=== PATIENT | female | born 2000 | race Caucasian/White ===

== ENCOUNTER 2019-12-27 08:51 | Emergency (ER) | payer OTHER, SELFPAY ==
[2019-12-27 08:53] VITALS: BP 152/88; PULSE 137; RESP 18; TEMP 36.1; O2SAT 98; BMI 34.4
--- NOTE | 2019-12-27 09:24 | ED.DCSUM_ITS ---
History of Present Illness Chief Complaint: Abd Pain Informant: Patient, Family Narrative: Patient states for the past 4 days she has had a worsening swelling of the left labia. 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 She is not had this before. Notes it is very painful and painful to move. Past Medical History - Allergies and Home Meds Allergies/Adverse Reactions: Allergies No Known Allergies Allergy (Verified 12/27/19 08:55) Primary Care Physician: Samara Lazaro PA-C [Primary Care Provider] - Smoking Status: Never smoker Review of Systems General: Denies: Chills, Fever, Sweats Eyes: Denies: Visual changes - bilaterally, Diplopia ENT: Denies: Rhinorrhea, Sore throat Cardiovascular: Denies: Chest pain, Palpitations Respiratory: Denies: Dyspnea, Cough, Dyspnea on exertion Gastrointestinal: Denies: Abdominal pain, Nausea, Vomiting, Diarrhea, Melena, Hematochezia Genitourinary: Reports: - - See history of present illness. Denies: Dysuria, Hematuria, Frequency Musculoskeletal: Denies: Back pain, Extremity Pain Skin: Denies: Rash, Wounds Neurological: Denies: Headache, Weakness, Numbness Physical Exam Vital Signs/Narrative: Vital Signs Temp Pulse Resp BP Pulse Ox 12/27/19 08:53 97 F L 137 H 18 152/88 H 98 Inital Vital Signs reviewed: Yes General: Well nourished, Well developed, No Acute Distress Head: Normocephalic, Atraumatic Eyes: Perrl, EOMI ENT: Moist mucous membranes, No rhinorrhea Neck: Supple, Nontender Cardiovascular: Regular rate, Regular rhythm, No murmurs Respiratory: No distress, CTA bilaterally, Chest nontender Abdomen: Soft, Nontender, Nondistended, Normal bowel sounds : - - There is significant swelling and erythema of the right labia and a focal swelling fluctuance consistent with a Bartholin's abscess Back: Nontender, Normal Inspection Extremities: Nontender, No edema Skin: Normal color, No rash Neurological: Alert, Oriented x3, Cranial nerves II-XII grossly intact, Normal Strength, Normal Sensation Psychological: Normal affect, Normal Mood Diagnostic/Tx/Re-eval - Medical Decision Making Let was applied to the area of fluctuance. 1% lidocaine instilled into the area after adequate time for let to work. A 11 blade was used to make an incision with expression of a large amount of pus. The area was probed for loculations and irrigated with sterile saline. Quarter inch iodoform gauze of about 5 inches was placed. Because of the surrounding erythema and concern for cellulitis the patient will be placed on antibiotics and pain medication. She needs to follow-up with gynecology in 3 days. ED Disposition - Plan for ED Patient: Disposition: Home or Assisted Living Diagnosis: Bartholin's gland abscess, Cellulitis of labia majora Instructions: ED Bartholins Cyst IandD Prescriptions: Smz/Tmp Ds [Bactrim Ds] 1 tab PO BID #20 tab Prescription Printed Cephalexin [Keflex] 500 mg PO Q6 #40 cap Prescription Printed Hydrocodone Bitart/Apap 5-325 [[place] 5MG-325MG] 1 tab PO Q6H PRN PRN 3 Days #12 tab PRN Reason: Pain Prescription Printed Referrals: Kelsey Duran DO [STAFF PHYSICIAN] -
[2019-12-27] MEDS: HYDROcodone Bitartrate/Apap 5/325 Tablet PO (10:02)
[2019-12-27] MEDS: Lidocaine/Epi/Tetracaine 50 ML 1 APPLIC TOPICAL (10:03)
[2019-12-27 11:41] VITALS: BP 137/88; PULSE 92; RESP 18; O2SAT 97
== END 2019-12-27 11:42 | disposition home or self-care (01) ==
PROVIDERS: Emergency Provider Emergency Medicine; PCP Family Medicine
DX: R10.9 Unspecified abdominal pain (principal); N75.1 Abscess of Bartholin's gland; N76.2 Acute vulvitis
CPT/HCPCS: 10060; 99283

== ENCOUNTER 2021-05-11 23:59 | Emergency (ER) | payer OTHER, SELFPAY ==
[2021-05-12] VITALS: BP 181/106; PULSE 108; RESP 16; TEMP 36.6; O2SAT 99; BMI 34.9
--- NOTE | 2021-05-12 00:12 | ED.VIS.FEGU ---
HPI HPI - Female History of Present Illness Chief Complaint: Vag Bleeding Narrative Narrative: Patient presents with vaginal bleeding that is irregular. She states that she has had irregular vaginal bleeding for the past few months, since December. She states that she will have heavy and light days. She may stop for 1 or 2 days, then will begin bleeding again. Most recently, she stopped bleeding on Friday and Friday, then began bleeding on Friday, 5 days ago. She states that this is different because she is passing a large amount of clots/large clots and bright red blood. She denies any other bleeding diathesis. No chest pain or shortness of breath, no lightheadedness, but her states that she becomes fatigued very frequently. PFSH PFSH Medical History no medical history Home Medications NK 05/12/21 [History Last Taken Unknown] Allergy/AdvReac Type Severity Reaction Status Date / Time No Known Allergies Allergy Verified 05/12/21 00:01 Social History Smoking Status: Never smoker ROS ROS ED ROS Narrative Constitutional: No fever, no chills. Mild fatigue. HEENT: No sore throat. No neck pain. No loss of vision. No rhinorrhea. Cardiovascular: No chest pain. No palpitations. No pedal edema. Respiratory: No cough, no shortness of breath. Abdominal: No abdominal pain. No nausea. No vomiting. Genitourinary: No dysuria. No hematuria. Positive irregular vaginal bleeding, passing large clots and bright red blood. Musculoskeletal: No myalgias. No arthralgias. Neurologic: No headaches. No dizziness. No lightheadedness. Skin: No rash. No change in color. Psychiatric: No depression. No anxiety. EXAM Physical Exam Narrative Exam Narrative: Afebrile. Vital signs noted. HEENT: Normocephalic. Atraumatic. PERRL, EOMI. Neck soft and supple. No point tenderness or step off. Cardiovascular: Regular rate and rhythm. No murmurs, rubs, or gallops appreciated. Respiratory: No tachypnea. Lungs clear to auscultation bilaterally. Gastrointestinal: Abdomen soft, nontender, with normoactive bowel sounds. No rebound or guarding. Neurological: Awake. Alert. Nonfocal, nonlateralizing. Skin: No rash. Normal color. No pallor. Musculoskeletal: No pedal edema. Full range of motion extremities. Const Vital Signs: 05/12/21 00:00 Temperature 97.8 F Temperature Source Temporal Pulse Rate 108 H Respiratory Rate 16 Blood Pressure 181/106 H Blood Pressure Mean 131 Pulse Ox 99 MDM MDM MDM Narrative Medical decision making narrative: I shall obtain a CBC and a serum test. Pelvic examination will be performed. She has slightly elevated white count of 11.5 which I think is nonspecific. Hemoglobin normal at 13.3. Serum is negative. Molecular Genetic Pathologist pelvic examination did show a mild amount of old blood in the vaginal vault, but no active hemorrhaging or laceration noted. Blood did appear to be coming from the os. At this point in time, given her dysfunctional uterine bleeding, I do feel that she can be discharged safely home to follow-up with the [facility]. She will take [id number]-[id number] Motrin as needed. She was told that medication such as control pills or Provera should come from the [facility]. Return instructions to the emergency department were reviewed. Disposition is discharged home in stable condition. Lab Data Attestation: I reviewed the patient's lab results. Labs: Laboratory Results - last 24 hr 05/12/21 05/12/21 00:20 00:20 WBC 11.5 H RBC 4.46 Hgb 13.3 Hct 40.0 MCV 89.7 MCH 29.8 MCHC 33.3 RDW Std Deviation 41.4 RDW Coeff of [place] 12.5 Plt Count 230 MPV 9.3 Immature Gran % (Auto) 0.400 Neut % (Auto) 69.2 Lymph % (Auto) 22.1 [place] % (Auto) 7.0 Eos % (Auto) 1.0 Baso % (Auto) 0.3 Absolute Neuts (auto) 7.9 H Absolute Lymphs (auto) 2.53 Nucleated RBC % 0 Serum , Qual NEGATIVE Discharge Plan Triage Chief Complaint: Vag Bleeding ED Provider: Nasim Shea Dx/Rx/DC Orders Clinical Impression: Dysfunctional uterine bleeding Instructions: ED Dysfunctional Uterine Bleeding Prescriptions: No Action NK RF: 0 Primary Care Provider: Samara Lazaro Referrals: Elsy Sanabria MD [STAFF PHYSICIAN] - 05/14/21 Samara Lazaro PA-C [Primary Care Provider] - Disposition Disposition: Home, Self Care
[2021-05-12 00:29] LABS: Absolute Lymphocyte Count 2.53 X10^3/uL (0.83-4.51); Absolute Neutrophil Count 7.9 X10^3/uL (2.0-7.7); Basophil# 0.04 X10^3/uL; Basophil% 0.3 % (0-1); Eosinophil# 0.11 X10^3/uL; Hemoglobin 13.3 g/dL (12.0-15.0); Lymphocyte # 2.53 X10^3/ul (0.83-4.51); Lymphocyte % 22.1 % (19-41); Mean Corp Hgb Conc 33.3 g/dL (32-36); Mean Corpuscular Hgb 29.8 pg (27.0-32.0); Mean Corpuscular Volume 89.7 fL (81-99); Mean Platelet Vol. 9.3 fl (6.2-12.0); NRBC Flagged by Analyzer 0 % (0-5); Neutrophil # 7.92 X10^3/uL (2.7-7.7); Neutrophil % 69.2 % (47-70); Platelet Count 230 K/mm3 (150-450); RBC Distribution Width CV 12.5 % (11.6-14.6); RBC Distribution Width SD 41.4 fl (35.1-43.9); Red Blood Count 4.46 M/mm3 (4.2-5.4); White Blood Count 11.5 K/mm3 (4.4-11.0)
[2021-05-12 00:37] LABS: Internal QC Validated? YES +Cl - CLEAR BKGD; Pregnancy, Serum, hCG Quali. NEGATIVE Negative
== END 2021-05-12 01:30 | disposition home or self-care (01) ==
PROVIDERS: Emergency Provider Emergency Medicine; PCP Family Medicine
DX: N93.8 Other specified abnormal uterine and vaginal bleeding (principal)
CPT/HCPCS: 84703; 85025; 99283

== ENCOUNTER 2021-05-30 13:51 | Outpatient (CLI) | payer OTHER, SELFPAY ==
[2021-05-30 14:45] LABS: Prolactin 8.1 ng/mL; Thyroid Stim Hormone (TSH) 1.05 uIU/mL (0.358-3.74)
[2021-06-02 00:06] LABS: Chlamydia By Nucleic Acid AMP Negative (Negative)
[2021-06-02 08:09] LABS: DHEA Sulfate 44.4 ug/dL (110.0-431.7)
[2021-06-02 16:14] LABS: Gonococcus By Nucleic Acid AMP Negative (Negative)
[2021-06-04 14:32] LABS: HPV Reflexed? NOT INDICATED
== END 2021-05-30 23:59 | disposition short-term general hospital (02) ==
PROVIDERS: PCP Family Medicine; Referring Provider Nurse Practitioner Women's Health; Visit Provider Nurse Practitioner Women's Health
DX: N93.9 Abnormal uterine and vaginal bleeding, unspecified (principal); Z12.4 Encounter for screening for malignant neoplasm of cervix
CPT/HCPCS: 36415; 82627; 84146; 84402; 84443; 87491; 87591; 88175; 82626; G0145

== ENCOUNTER → 2022-01-31 | Outpatient (CLI) | payer SELFPAY, OTHER ==
--- NOTE | 2022-01-31 14:30 | US_ITS ---
STUDY: ULTRASOUND OF THE FEMALE PELVIS - COMPLETE REASON FOR EXAM: Female, 21 years old. infertility and amenorrhea TECHNIQUE: Endovaginal. Transvaginal US was obtained to better visualized the ovaries. COMPARISON: None. FINDINGS: The uterus is anteverted and is in a midline position. The uterus measures 7.1 x 3.7 cm. There is a Nabothian cyst of the cervix. The endometrium measures 1 mm in thickness, and is hyperechoic. There is no demonstrated endometrial mass. There is no demonstrated myometrial mass. I.U.D. - The patient does not have an I.U.D. The right ovary is visualized. The right ovary measures 3.4 x 2.9 cm. There is no right ovarian cyst or ovarian mass. There is no visualized right adnexal mass or complex lesion. There is normal arterial and normal venous vascularity. The left ovary is visualized. The left ovary measures 4.8 x 3.7 cm. There is no left ovarian cyst or ovarian mass. There is no visualized left adnexal mass or complex lesion. There is normal arterial and normal venous vascularity. There is no fluid in the cul-de-sac. Urinary bladder volume is (in cc) 95. US/Transvaginal Non- IMPRESSION: There are Nabothian cysts of the cervix. Moderate free fluid in the pelvis contains debris. Electronically Signed: Rolando Leija MD at 15:59 EDT ,
--- NOTE | 2022-01-31 14:30 | US_ITS ---
STUDY: ULTRASOUND OF THE FEMALE PELVIS - COMPLETE REASON FOR EXAM: Female, 21 years old. infertility and amenorrhea TECHNIQUE: Endovaginal. Transvaginal US was obtained to better visualized the ovaries. COMPARISON: None. FINDINGS: The uterus is anteverted and is in a midline position. The uterus measures 7.1 x 3.7 cm. There is a Nabothian cyst of the cervix. The endometrium measures 1 mm in thickness, and is hyperechoic. There is no demonstrated endometrial mass. There is no demonstrated myometrial mass. I.U.D. - The patient does not have an I.U.D. The right ovary is visualized. The right ovary measures 3.4 x 2.9 cm. There is no right ovarian cyst or ovarian mass. There is no visualized right adnexal mass or complex lesion. There is normal arterial and normal venous vascularity. The left ovary is visualized. The left ovary measures 4.8 x 3.7 cm. There is no left ovarian cyst or ovarian mass. There is no visualized left adnexal mass or complex lesion. There is normal arterial and normal venous vascularity. There is no fluid in the cul-de-sac. Urinary bladder volume is (in cc) 95. US/Pelvic (Non ) IMPRESSION: There are Nabothian cysts of the cervix. Moderate free fluid in the pelvis contains debris. Electronically Signed: Rolando Leija MD at 15:59 EDT ,
== END | disposition home or self-care (01) ==
LOC: US 14:29
PROVIDERS: PCP Family Medicine; Referring Provider Obstetrics & Gynecology; Visit Provider Obstetrics & Gynecology
DX: N93.9 Abnormal uterine and vaginal bleeding, unspecified (principal)
CPT/HCPCS: 76830; 76856

== ENCOUNTER → 2022-02-20 | Outpatient (CLI) | payer OTHER, SELFPAY ==
--- NOTE | 2022-02-20 11:53 | RAD_ITS ---
STUDY: HYSTEROSALPINGOGRAM. REASON FOR EXAM: Female, 21 years old. Fertility testing FLUOROSCOPY TIME (if supplied): ( 62 seconds ) minutes/seconds. 2 images were obtained. TECHNIQUE: A hysterosalpingogram was performed by the fish dressing machine feeder. Imaging was provided. COMPARISON: None. FINDINGS: The uterus is visualized and is unremarkable. The fallopian tubes are not opacified. RAD/Salpingogram IMPRESSION: The fallopian tubes are not opacified. Electronically Signed: Oscar Ray MD at 13:10 EDT ,
--- NOTE | 2022-02-20 13:08 | PCM.OP.BLANK ---
Operative Report Preop diagnosis: Infertility Postop diagnosis: Infertility, bilateral tubes blocked. Procedure: Hysterosalpingogram Surgeon: Amanda Morrison Do Implantable devices: None Complications: None Findings: Bilateral tubal patency and normal uterine cavity Operative details: Patient was taken to the x-ray room and was placed on the x-ray table and was in the dorsal lithotomy position. Speculum was placed in the vagina and the cervix prepped with Betadine and the HSG catheter was easily introduced into the uterus and speculum removed. Radiologist was brought in and while pushing radiopaque dye into the uterus via the HSG catheter the radiologist took multiple images and views and confirmed that there is bilateral blockage of both fallopian tubes. No gross uterine filling defects or abnormalities were seen. All instruments removed from the vagina and the uterus without complication. Patient tolerated the procedure well. Multi Select Codes Urinary/Genital Urinary/Genital CPT Codes: 54598 HSG/SIS
== END | disposition home or self-care (01) ==
PROVIDERS: PCP Family Medicine; Referring Provider Obstetrics & Gynecology; Visit Provider Obstetrics & Gynecology
DX: E28.2 Polycystic ovarian syndrome (principal); Z31.41 Encounter for fertility testing
CPT/HCPCS: 58340; 74740; Q9967

== ENCOUNTER 2022-02-26 08:00 | Day surgery (SDC) | payer SELFPAY, OTHER ==
[2022-02-25 14:36] LABS: Hematocrit 43.2 % (37-47); Mean Corp Hgb Conc 32.4 g/dL (32-36); Mean Corpuscular Hgb 28.5 pg (27.0-32.0); Mean Corpuscular Volume 87.8 fL (81-99); Mean Platelet Vol. 9.8 fl (6.2-12.0); Platelet Count 270 K/mm3 (150-450); RBC Distribution Width SD 45.2 fl (35.1-43.9); Red Blood Count 4.92 M/mm3 (4.2-5.4); White Blood Count 11.7 K/mm3 (4.4-11.0)
[2022-02-26] VITALS (8 sets, daily range): BP systolic 106–150; BP diastolic 68–84; PULSE 67–125; RESP 16–18; TEMP 36.2–37; O2SAT 95–99; BMI 36.1
[2022-02-26] MEDS: Lactated Ringers 1,000 ML 15 ML IV (08:25)
--- NOTE | 2022-02-26 08:42 | HP.PCM_ITS ---
History and Physical Date of Admission: 02/26/22 MR#: [id number] Acct: [id number] Name:STARLA BUSTILLO Rep #: [id number] : 2000 ? ? Provider: Dr. Amanda Morrison, DO Age/Sex:? 21/F ? ? Location: [facility] Status: Signed Intake Vital Signs ? 01/24/2209:45 01/24/2209:46 Height 5 ft 9 in 5 ft 9 in Weight: 242 lb 2 oz ? BMI 35.7 ? BP 136/90 H ? Intake Visit Reasons:?discuss labs and clomid, see phone notes Paving Stone Installer Required: No Is patient in pain?: No Allergies No Known Allergies Allergy (Verified 01/24/22 09:45) Medications medroxyprogesterone 10 mg tablet 10 mg PO DAILY 10 days #30 tabs 07/11/21 [Rx Confirmed 01/24/22] progesterone micronized 100 mg capsule 100 mg PO QAM 10 days #10 caps 01/24/22 [Rx Confirmed 01/24/22] Post menopausal: No Patient : No : No PFSH Medical History? Bartholin cyst Family History? Father HypertensionGrandmother Hypertension Social History? Smoking Status:? Never smoker alcohol intake:? never substance use type:? does not use additional social history:? HPI discuss labs and clomid, see phone notes Details: STARLA LAM is a 21 year old who presents for discussion about infertility. She has been taking progesterone starting day 16 of cycle x 10 days to give her self a menses. She also has chin and neck hairs. HSG showed bilateral blockage of fallopian tubes. Dysmenorrhea: no Irregular menses: yes Menopausal symptoms: no Persistent HERRON or visual changes: no Hirsutism: yes Previous contraception used: none Duration of regular unprotected intercourse: yes for many years history of pelvic infections in patient or partner: no family history of endometriosis: pt unsure tobacco use for patient or her partner: no partner fathered any pregnancies: no partner history of testicular issues, ejaculatory dysfunction, or history of Mumps: no Partner medications/vitamins/supplements: no Partner's employment: self any additional risk factors identified: likely has PCOS. History ? ? ? 0 ? Elective abortions ? Hx Para ? Spontaneous abortions ? Hx # Term Pregnancies ? Ectopic pregnancies ? Hx # Pregnancies ? Multiple births ? # of living children ? ROS Const ROS Unobtainable: All systems reviewed & are unremarkable except as noted in H Resp Resp: Reports system reviewed and no additional complaints, except as documented; Denies cough GI GI: Reports as per HPI Psych Psych: Reports system reviewed and no additional complaints, except as documented Exam Const General: cooperative, healthy appearing, comfortable and no acute distress Resp Effort & Inspection: normal respiratory effort Skin General: no rashes or lesions noted Psych Appearance: grossly normal Speech and Movement: speech and movement normal Coding Level of Care Code Off vis,est,level 4 Diagnoses Abnormal uterine bleeding (AUB)? N93.9 Amenorrhea? N91.2 PCOS (polycystic ovarian syndrome)? E28.2 Assessment and Plan Assessment and Plan (1) Abnormal uterine bleeding (AUB): ?Status:?Acute ?Comment: provera cycling (2) Amenorrhea: ?Status:?Acute (3) PCOS (polycystic ovarian syndrome): ?Status:?Acute ? ? ? Orders: (4) bilateral non-patent fallopian tubes on HSG- pt was on the table waiting for radiologist with catheter in the uterus for 15 minutes. We discussed that there is the potential that this could have caused spasms of the fallopian tube creating a false result. The plan is to proceed with a diagnostic laparoscopy and chromopertubation using methylene blue to know more about what is going on.
[2022-02-26 08:57] LABS: Internal QC Validated? YES +Cl - CLEAR BKGD; Pregnancy, Urine Negative Negative
[2022-02-26] MEDS: Cefotetan 2 GM in 0.9% NS 100 ML IV (10:05)
--- NOTE | 2022-02-26 10:31 | DCINST_ITS ---
Discharge Instructions Diet Discharge Diet: No restrictions Activity Discharge Activity: Return to Normal Activity, May Not Drive (for two weeks or while taking narcotic pain medications.), May Shower and May Take a Tub Bath (in 7 days) May resume sexual activity in: 1 week Weight Bearing Status: Full weight bearing Dressing / Incision Call your doctor if you observe: Using more than 1 pad per hour, Shortness of breath, Chest pain and Uncontrolled pain Suture Line Care: Avoid Pulling/Pushing and Avoid Pinching/Bending Remove Dressing in: 1 week (if present) Cleanse incision/area with: Soap & Water and Keep Dressing Clean & Dry Follow Up Care Please Follow Up With: Amanda Morrison DO When: Call to make an appointment with your doctor for a follow up incision check in 1-2 weeks. Test Results: Test results from this visit will be discussed in further detail at your follow- up appointment, if applicable. Discharge Plan Admission Primary Reason for Your Visit: diagnostic laparoscopy Attending Provider: Amanda Morrison Primary Care Provider: Samara Lazaro Discharge Orders/Prescriptions Prescriptions: New oxycodone-acetaminophen [Percocet] 5-325 mg tablet 1 tab PO Q6H PRN (Reason: pain) 3 Days Qty: 10 0RF ibuprofen 600 mg tablet 600 mg PO Q6H PRN (Reason: pain) 7 Days Qty: 30 0RF Continued medroxyprogesterone [Provera] 10 mg tablet 10 mg PO DAILY Rx Instructions: Take 1 po cycle days 16-25 each month Referrals / Follow Up: Samara Lazaro PA-C [Primary Care Provider] - Disposition Disposition (needs filled in before D/C Order can be placed): Home, Self Care
--- NOTE | 2022-02-26 10:36 | OP.PCM_ITS ---
Problems Associated Problem List Diagnoses (1) Amenorrhea: (2) PCOS (polycystic ovarian syndrome): (3) History of hysterosalpingogram: Operative Report Date of Procedure: 02/26/22 Preoperative diagnosis: Abnormal hysterosalpingogram showing blockage of both fallopian tubes Postoperative diagnosis: Patent bilateral fallopian tubes Surgery: Diagnostic laparoscopy chromopertubation of fallopian tubes using methylene blue Surgeon: Amanda Morrison DO Supply Clerk: highway traffic control technician Anesthesia: General endotracheal intubation Estimated blood loss: 5 cc Urine output: 100 cc Findings: Normal uterus fallopian tubes and enlarged ovaries consistent with polycystic ovarian syndrome, patent fallopian tubes showing methylene blue spillage of both sides. Normal liver and bowel and omentum. Details of the procedure : the patient was brought to the operating room. General anesthesia was found to be adequate. She was prepped and draped in the usual sterile fashion her legs were placed in stirrups. A weighted speculum was placed in the vagina and the anterior lip of the cervix was grasped with a single-tooth tenaculum. The uterus sounded to 9 cm. A ZUMI uterine manipulator was inserted into the uterus. Gloves were changed and attention was turned towards the abdomen. An infraumbilical skin incision was made with a scalpel after quarter percent Marcaine injection. A 5 mm trocar was inserted into the abdomen under direct visualization using the laparoscope. Intraoperative images were noted and CO2 gas was used to inflate the abdomen. The patient was placed in Trendelenburg position and a left lower quadrant 5 mm trocar was inserted under direct visualization. The uterus was noted to be normal the bilateral fallopian tubes were normal without signs of adhesion edema mass or endometriosis. The ovaries were noted to be enlarged and consistent with her prior diagnosis of polycystic ovarian syndrome. Methylene blue was injected into the ZUMI manipulator and flow was seen coming from both fallopian tubes easily and without manipulation. At this time the procedure was ended all instruments were removed from the abdomen the incision sites were closed with a 4-0 Monocryl subcuticular stitch and sealed with surgical glue. The uterine manipulator was removed and excellent hemostasis was noted at the cervix. The patient tolerated the procedure well sponge lap and needle counts were correct x2 and she is now being brought to the recovery room in stable condition. Multi Select Codes Urinary/Genital Urinary/Genital CPT Codes: Other Procedure See Report (diagnostic laparoscopy, chromopertubation of fallopian tubes )
== END 2022-02-26 12:48 | disposition home or self-care (01) ==
LOC: SDC 08:00 → AC 08:01
PROVIDERS: PCP Family Medicine; Referring Provider Obstetrics & Gynecology; Visit Provider Obstetrics & Gynecology
PROC: (CPT 49320; principal; 2022-02-26 09:15)
DX: N93.9 Abnormal uterine and vaginal bleeding, unspecified (principal); E28.2 Polycystic ovarian syndrome; N83.8 Other noninflammatory disorders of ovary, fallopian tube and broad ligament; Z31.41 Encounter for fertility testing
CPT/HCPCS: 58350; 49320; 00952; 36415; 81025; 85027; J7120; Q9968

== ENCOUNTER → 2023-08-06 | Outpatient (CLI) | payer OTHER, SELFPAY ==
[2023-08-06 13:58] LABS: Progesterone Level 9.44 ng/mL (See Comment)
== END | disposition home or self-care (01) ==
LOC: LAB 12:23
PROVIDERS: PCP Family Medicine; Referring Provider Nurse Practitioner Women's Health; Visit Provider Nurse Practitioner Women's Health
DX: N97.0 Female infertility associated with anovulation (principal)
CPT/HCPCS: 36415; 84144

== ENCOUNTER → 2023-10-22 | Outpatient (CLI) | payer OTHER, SELFPAY ==
[2023-10-22 14:08] LABS: hCG Titer Quant., Serum 798 mIU/mL (1-3)
== END | disposition home or self-care (01) ==
LOC: LAB 11:21
PROVIDERS: PCP Family Medicine; Referring Provider Obstetrics & Gynecology; Visit Provider Obstetrics & Gynecology
DX: N91.2 Amenorrhea, unspecified (principal)
CPT/HCPCS: 36415; 84702

== ENCOUNTER → 2023-10-24 | Outpatient (CLI) | payer OTHER, SELFPAY ==
[2023-10-24 10:24] LABS: hCG Titer Quant., Serum 1485 mIU/mL (1-3)
== END | disposition home or self-care (01) ==
PROVIDERS: PCP Family Medicine; Referring Provider Obstetrics & Gynecology; Visit Provider Obstetrics & Gynecology
DX: N91.2 Amenorrhea, unspecified (principal)
CPT/HCPCS: 36415; 84702

== ENCOUNTER → 2023-11-14 | Outpatient (CLI) | payer OTHER, SELFPAY ==
[2023-11-14 12:50] LABS: Absolute Lymphocyte Count 2.06 X10^3/uL (0.83-4.51); Absolute Neutrophil Count 7.8 X10^3/uL (2.0-7.7); Basophil# 0.04 X10^3/uL; Basophil% 0.4 % (0-1); Eosinophil# 0.22 X10^3/uL; Hematocrit 41.7 % (37-47); Hemoglobin 13.5 g/dL (12.0-15.0); Lymphocyte # 2.06 X10^3/ul (0.83-4.51); Lymphocyte % 18.9 % (19-41); Mean Corp Hgb Conc 32.4 g/dL (32-36); Mean Corpuscular Hgb 28.6 pg (27.0-32.0); Mean Corpuscular Volume 88.3 fL (81-99); Mean Platelet Vol. 9.6 fl (6.2-12.0); Monocyte# 0.71 X10^3/uL; Monocyte% 6.5 % (0-10); NRBC Flagged by Analyzer 0 % (0-5); Neutrophil # 7.79 X10^3/uL (2.7-7.7); Neutrophil % 71.6 % (47-70); Platelet Count 267 K/mm3 (150-450); RBC Distribution Width CV 13.8 % (11.6-14.6); RBC Distribution Width SD 44.9 fl (35.1-43.9); Red Blood Count 4.72 M/mm3 (4.2-5.4); White Blood Count 10.9 K/mm3 (4.4-11.0)
[2023-11-14 13:35] LABS: hCG Titer Quant., Serum 9887 mIU/mL (1-3)
== END | disposition home or self-care (01) ==
PROVIDERS: PCP Family Medicine; Referring Provider Registered Nurse; Visit Provider Registered Nurse
DX: O20.0 Threatened abortion (principal); O99.210 Obesity complicating pregnancy, unspecified trimester; Z3A.00 Weeks of gestation of pregnancy not specified
CPT/HCPCS: 36415; 83036; 84702; 85025; 86850; 86900; 86901

== ENCOUNTER 2023-11-16 13:13 | Emergency (ER) | payer OTHER, SELFPAY ==
[2023-11-16 13:14] VITALS: BP 150/97; PULSE 103; RESP 12; RESP 14; TEMP 36.3; O2SAT 97; BMI 32.8
--- NOTE | 2023-11-16 13:34 | ED.VIS.FEGU ---
HPI <FAM Wooten - Last Filed: 11/16/23 15:11> HPI - Female History of Present Illness Chief Complaint: Narrative Narrative: Patient is a 23-year-old female with no significant medical history, patient presents to the emergency department for a repeat lab value. Patient sees [place] [facility], patient last menstrual cycle was September 18, 2023. Patient had an ultrasound and hCG quantitative completed 2 days ago, the belief was that the patient was 8 weeks however she is only measuring up to 5 weeks with a would like a repeat hCG quantitative here today. Patient states she has no belly pain, no difficulty urinating, no vaginal bleeding. Patient is mostly asymptomatic and states she is just here for the blood draw [facility] <FAM Wooten - Last Filed: 11/16/23 15:11> [facility] Medical History (Updated 11/16/23 @ 15:11 by FAM Wooten) Wears glasses Heartburn Non-smoker Bartholin cyst Home Medications ?Medication ?Instructions ?Recorded ?Last Taken ?Type vits no.126-ferrous fum tab PO 11/07/23 Unknown History 28 mg iron-folic acid 800 mcg tablet (Classic ) Allergy/AdvReac Type Severity Reaction Status Date / Time No Known Allergies Allergy Verified 11/16/23 13:14 Family History Father Hypertension Grandmother Hypertension Surgical History (Updated 11/14/23 @ 11:21 by Roxana Orta) Status post laparoscopy (~02/26/22) Hx of tooth extraction Social History adopted: No household members: spouse current occupational status: employed 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 occupational exposures/hazards: No pets and animals: Yes (outside) pets and animals: dog(s) history of recent travel: No sexually active: Yes Smoking Status: Never smoker alcohol intake: current alcohol intake frequency: holidays/special occasions only details: not while substance use type: does not use diet: gluten free and lactose free well-balanced diet: daily or most days caffeine: No eating out: rarely or never during the past year weight has: remained stable what type of physical activity do you participate in: walking frequency: 5-6 times per week duration: 15-30 minutes/day preethi/yarsanism: Scientology seatbelt use: sometimes do you feel safe at home: Yes additional social history: - Eri: [employer] ROS <FAM Wooten - Last Filed: 11/16/23 15:11> ROS ED ROS Narrative Constitutional: Negative for fever, chills, weight loss, weakness Eyes: Negative for vision loss, vision change, double vision ENT: Negative for any sore throat, ear pain, congestion Cardiovascular: Negative for any chest pain, tightness, palpitations Respiratory: Negative for any cough, sputum production, hemoptysis, dyspnea, dyspnea on exertion, orthopnea Gastrointestinal: Negative for any abdominal pain, nausea, vomiting, diarrhea, constipation, blood in stool, blood in vomit : Negative for any urinary frequency, dysuria, retention, blood in urine Muscle skeletal: Negative for any neck pain, back pain Neurological: Negative for any headache, syncope, dizziness Skin: Negative for any rashes, itching, abrasions, lacerations Psychiatric: Negative for any depression, anxiety, stress, suicidal ideation, homicidal ideation Hematologic: Negative for any excessive bruising, easy bleeding EXAM <FAM Wooten - Last Filed: 11/16/23 15:11> Physical Exam Narrative Exam Narrative: Vital signs reviewed. HEET: Head normocephalic atraumatic, TMs clear bilaterally. Posterior pharynx is clear, moist mucous membranes. Nares clear bilaterally. Neck: Supple with no lymphadenopathy or tenderness. No signs of meningismus. Cardiac: Regular rate and rhythm no murmurs gallops or rubs, equal peripheral pulses bilaterally. Respiratory: Lungs clear to auscultation bilaterally. No chest tenderness. Abdomen: Soft, nontender, nondistended. No abdominal bruit or pulsatile masses. No hepatosplenomegaly Extremities: No peripheral edema, no signs of gross trauma or deformity. Active full range of motion of all extremities. Neuro: Cranial nerves II through XII intact, no focal neurological deficits. Skin: Clean dry and intact with no rash, purpura, petechiae, vesicles or pustules. Backs/flank: No CVA tenderness, no midline spinal tenderness, no deformity. Psych: Normal mood and affect. No SI, HI or acute psychosis. Const Vital Signs: 11/16/23 13:14 11/16/23 13:14 Temperature 97.3 F L Temperature Source Temporal Pulse Rate 103 H 103 H Respiratory Rate 12 14 Blood Pressure 150/97 H 150/97 H Blood Pressure Mean 114 114 Pulse Ox 97 97 Oxygen Delivery Method Room Air Room Air Positive well nourished and well developed General Appearance ED: well developed <Dr. Jose Issa DO - Last Filed: 11/16/23 16:25> Physical Exam Const Vital Signs: 11/16/23 13:14 11/16/23 13:14 Temperature 97.3 F L Temperature Source Temporal Pulse Rate 103 H 103 H Respiratory Rate 12 14 Blood Pressure 150/97 H 150/97 H Blood Pressure Mean 114 114 Pulse Ox 97 97 Oxygen Delivery Method Room Air Room Air MDM <FAM Wooten - Last Filed: 11/16/23 15:11> [facility] Lab Data Labs: Laboratory Results - last 24 hr 11/16/23 13:50 HCG, Quant 9700 H Treatment and Re-Evaluation Narrative: Differential diagnosis includes however is not limited to: Spontaneous , normal hCG quantitative levels, asymptomatic Patient appears to be in no obvious distress vital signs are stable. Presenting to the emergency department for concern of the weeks the patient is. There is discrepancy between 5 to 8 weeks. Patient received a hCG quantitative 2 days ago on 13 November it was 9887. Patient will receive an hCG quantitative at this time. Patient's repeat serum hCG quant was 9700. This did decrease. I spoke with [place] ROAD CONSULTANT Dr. Weber, I let her know of the trending downward hCG quant, choose aware and has a appointment this upcoming Friday with the patient. She will reach out to the patient. All questions answered, the patient did leave before I was able to speak with her regarding the lab value. However ROAD CONSULTANT will reach out to the patient. There is nothing emergently to perform at this time. <Dr. Jose Issa DO - Last Filed: 11/16/23 16:25> [facility] Lab Data Labs: Laboratory Results - last 24 hr 11/16/23 13:50 HCG, Quant 9700 H Treatment and Re-Evaluation Narrative: Differential diagnosis includes however is not limited to: Spontaneous , normal hCG quantitative levels, asymptomatic Patient appears to be in no obvious distress vital signs are stable. Presenting to the emergency department for concern of the weeks the patient is. There is discrepancy between 5 to 8 weeks. Patient received a hCG quantitative 2 days ago on 13 November it was 9887. Patient will receive an hCG quantitative at this time. Patient's repeat serum hCG quant was 9700. This did decrease. I spoke with [place] RO[facility] CONSULTANT Dr. Sanabria, I let her know of the trending downward hCG quant, choose aware and has a appointment this upcoming Friday with the patient. She will reach out to the patient. All questions answered, the patient did leave before I was able to speak with her regarding the lab value. However ROAD CONSULTANT will reach out to the patient. There is nothing emergently to perform at this time. Patient presented for quantitative hCG referred by obstetrics. She was seen by the nurse practitioner. Lab work was obtained however prior to results or history and exam the patient had eloped. The nurse practitioner did speak with the Elly who has follow-up with her on the . Discharge Plan Triage Chief Complaint: ED Midlevel Provider: Jamie Frazier ED Provider: Jose Issa Dx/Rx/DC Orders Clinical Impression: Threatened miscarriage Instructions: Miscarriage Threatened Prescriptions: No Action Classic 28 mg iron- 800 mcg tablet PO Primary Care Provider: Samara Lazaro Referrals: Samara Lazaro PA-C [Primary Care Provider] - Print Language: Malawian Disposition Disposition: Elopement Discharge Date/Time: 11/16/23 14:42
--- NOTE | 2023-11-16 13:45 | ED.RN ---
elizabeth pt blood, pt stood up to leave after blood draw. explained to pt that this is the emergency room, not outpatient testing. dr will come see them and 45 min for lab results. dr will want to see results to complete his evaluation prior to dc. pt sat back down and acknowledged understanding
[2023-11-16 14:30] LABS: hCG Titer Quant., Serum 9700 mIU/mL (1-3)
--- NOTE | 2023-11-16 14:37 | ED.RN ---
pt not in room, bathroom, ed or surrounding.
== END 2023-11-16 14:42 | disposition left against medical advice (07) ==
LOC: ED 14:29
PROVIDERS: Nurse Practitioner; Emergency Provider Student in an Organized Health Care Education/Training Program; PCP Family Medicine; Visit Provider Student in an Organized Health Care Education/Training Program
DX: O20.0 Threatened abortion (principal); Z3A.08 8 weeks gestation of pregnancy
CPT/HCPCS: 84702; 99282

== ENCOUNTER → 2023-11-25 | Outpatient (CLI) | payer OTHER, SELFPAY ==
--- NOTE | 2023-11-25 14:11 | US_ITS ---
STUDY: FIRST TRIMESTER OBSTETRICAL ULTRASOUND REASON FOR EXAM: Female, 23 years old viability LMP: September 18, 2023. TECHNIQUE: Transvaginal TECHNICAL QUALITY: Adequate. PRIOR ULTRASOUND: None. FINDINGS: There is visualization of a single gestational sac in a normal intrauterine position. The mean sac diameter (MSD) measures 1.81 cm, indicating an estimated gestational age (EGA) of 7 weeks, 0 days. The gestational sac shape is within normal limits. There is a visualized yolk sac. The yolk sac measures 2.6 mm. The placenta is non-visualized. There is visualization of an embryo with no cardiac activity, consistent with intrauterine demise. The estimated gestation age (EGA) by LMP is 9 weeks, 5 days. The estimated date of delivery (CRISTINA) by LMP is June 24, 2024. The estimated gestation age (EGA) by US is 6 weeks, 5 days. The estimated date of delivery (CRISTINA) by US is July 15, 2024. The uterus measures 9 cm x 6.6 cm x 5.2 cm. There is no demonstrated uterine fibroid. The cervix is closed. The right ovary measures 5.3 cm x 3.4 cm x 2.7 cm. There is a 1.9 cm x 1.6 cm x 1.3 cm right ovarian cyst. There is no visualized right adnexal mass or complex lesion. The left ovary measures 4.7 cm x 4.6 cm x 2.5 cm. There is a 1.6 cm x 1.2 cm x 1.1 cm echogenic nodule most likely representing resorption of a corpus luteum. There is no visualized left adnexal mass or complex lesion. There is minimal fluid in the cul de sac. US/Transvaginal w/Preg US IMPRESSION: demise. Electronically Signed: Oscar Ray MD at 8:29 EDT ,
== END | disposition home or self-care (01) ==
LOC: OPUS 14:11
PROVIDERS: PCP Family Medicine; Referring Provider Obstetrics & Gynecology; Visit Provider Obstetrics & Gynecology
DX: O20.0 Threatened abortion (principal); Z3A.01 Less than 8 weeks gestation of pregnancy
CPT/HCPCS: 76817

== ENCOUNTER 2023-11-26 09:50 | Day surgery (SDC) | payer SELFPAY, OTHER ==
[2023-11-26] VITALS (8 sets, daily range): BP systolic 125–150; BP diastolic 74–85; PULSE 80–107; RESP 16–17; TEMP 36.9–37; O2SAT 95–100; BMI 34.8
--- NOTE | 2023-11-26 | POC_PTH ---
PATIENT: STARLA LAM LOC: [facility] U#:[id number] AGE/SX: 23/F ROOM: RE11/26/[address]: Dr. Elsy Sanabria MD : 2000 BED: DIS: 11/26/2023 SPEC #: [id number] RECD: 11/26/23 15:14 STATUS: LAWRENCE DANGELO #: [id number] JHOAN: 11/26/23 00:[address]: Elsy Sanabria DEPT: SURGICAL PATHOLOGY RECD BY: Barbara Mosley ENTERED: 11/27/23 07:13 SP TYPE: PROD CONC OTHR DR: Samara Lazaro PA-C Tissues: Product of conception, NOS Procedures: Surgery Specimen Level IV HEADER OPERATION: D&C, suction PRE-OP DIAGNOSIS: Missed TISSUE SUBMITTED: Products of conception MICROSCOPIC DIAGNOSIS Products of conception, suction, dilation and curettage: Decidua, immature chorionic villi and gestational endometrium (products of conception), clinically missed . See comment. CHERRI: 11/28/2023 COMMENT A few of the villi also show hydropic changes. Trophoblastic hyperplasia is not seen. Clinical correlation and appropriate follow up are necessary. MICROSCOPIC DESCRIPTION Slides are reviewed. GROSS DESCRIPTION Received in fixative is one container labeled with the patient's name and designated Products of conception. The specimen consists of multiple fragments of matta soft tissue measuring in aggregate 6.0 x 6.0 x 1.0cm. tissue is not identified. Lead Data Architect tissue is submitted in three cassettes. CHERRI/ 11/27/2023 TC:5 CPT:80551
--- NOTE | 2023-11-26 10:38 | HP.PCM.OB_ITS ---
HPI - General HPI Narrative STARLA LAM, is a 23 F who presents for suction d and c for missed ab, 5 mm CRL with no fht seen. no vb cramping. Maternal Data Information CRISTINA Calculator Estimated Delivery Date Method Current WG Current Estimate 06/24/24 LMP (Certain) 9w 6d PFSH PFSH Medical History Wears glasses Heartburn Non-smoker Bartholin cyst Home Medications ?Medication ?Instructions ?Recorded ?Last Taken ?Type vits no.126-ferrous fum tab PO 11/07/23 Unknown History 28 mg iron-folic acid 800 mcg tablet (Classic ) Allergy/AdvReac Type Severity Reaction Status Date / Time No Known Allergies Allergy Verified 11/19/23 09:15 Family History Father Hypertension Grandmother Hypertension Surgical History Status post laparoscopy (~02/26/22) Hx of tooth extraction Social History adopted: No household members: spouse current occupational status: employed 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 occupational exposures/hazards: No pets and animals: Yes (outside) pets and animals: dog(s) history of recent travel: No sexually active: Yes Smoking Status: Never smoker alcohol intake: current alcohol intake frequency: holidays/special occasions only details: not while substance use type: does not use diet: gluten free and lactose free well-balanced diet: daily or most days caffeine: No eating out: rarely or never during the past year weight has: remained stable what type of physical activity do you participate in: walking frequency: 5-6 times per week duration: 15-30 minutes/day preethi/scientologist: Jewish seatbelt use: sometimes do you feel safe at home: Yes additional social history: - Eri: [employer] History 1 Elective abortions Hx Para Spontaneous abortions Hx # Term Pregnancies Ectopic pregnancies Hx # Pregnancies Multiple births # of living children 0 Visit Details OB Flowsheet Initial Weight: 238 lb Date -?-?-?-?-?-?-?-?-?-?-?-?- EGA Weight BP Urine Prot -?-?-?-?-?-?-?-?-?-?-?-?- Glucose FHR FuHt Pres Dilation -?-?-?-?-?-?-?-?-?-?-?-?- Effaced St Visit Note 11/14/23 -?-?-?-?-?-?-?-?-?-?-?-?- 8w 1d 238 lb 6 oz (+6 oz) 137/88 -?-?-?-?-?-?-?-?-?-?-?-?- -?-?-?-?-?-?-?-?-?-?-?-?- LC- GS measuring 5w2d, pole unable to be measured but present. no fhr. plan to obtain hcg levels with repeat scan on friday with SM. 11/19/23 -?-?-?-?-?-?-?-?-?-?-?-?- 8w 6d 234 lb 8 oz (-3 lb 8 oz) 129/84 -?-?-?-?-?-?-?-?-?-?-?-?- -?-?-?-?-?-?-?-?-?-?-?-?- SM- GS measuring 6w1d, pole 6mm no FHT seen. reviewed precautions and decision for repeat scan friday. if no fht proceed with d and c. if viable fu in 2 weeks. ROS Constitutional Constitutional: Reports systems reviewed and no addt'l complaints, except as documented; Denies as per HPI, change in weight, fatigue, fever(s), malaise, weakness or other Eyes Eyes: Reports systems reviewed and no addt'l complaints, except as documented; Denies as per HPI, change in vision or other ENT HEENT: Reports systems reviewed and no addt'l complaints, except as documented Respiratory/Chest Respiratory/Chest: Reports systems reviewed and no addt'l complaints, except as documented Gastrointestinal Gastrointestinal: Reports systems reviewed and no addt'l complaints, except as documented and as per HPI Genitourinary Genitourinary: Reports as per HPI Musculoskeletal Musculoskeletal: Reports systems reviewed and no addt'l complaints, except as documented Neurologic Neurologic: Reports systems reviewed and no addt'l complaints, except as documented Psychiatric Psychiatric: Reports systems reviewed and no addt'l complaints, except as documented Endocrine Endocrinology: Reports systems reviewed and no addt'l complaints, except as documented Hematologic/Lymphatic Hematologic/Lymphatic: Reports systems reviewed and no addt'l complaints, except as documented Physical Exam Const alert, oriented x3 and no apparent distress HEENT normocephalic Head and Scalp: atraumatic Eyes EOMs intact bilaterally and conjunctivae normal Neck full ROM, no lymphadenopathy, supple and thyroid normal General: trachea midline Lymph Lymphatic: no lymphadenopathy noted Resp normal respiratory effort, no retractions, no use of accessory muscles and clear to auscultation bilaterally Cardio regular rhythm GI normal to inspection, nondistended, normoactive bowel sounds, soft to palpation, non-distended and no masses Inspection: Negative for abdominal distention Back/Spine no CVA tenderness Extremity normal to inspection Skin no rashes or lesions noted Neuro moves all extremities and deep tendon reflexes 2+ bilaterally Psych mental status grossly normal Labs Labs Labs: Blood Type A POSITIVE Antibody Screen NEGATIVE Hct 41.7 % (37-47) Hgb 13.5 g/dL (12.0-15.0) Obstetrics Ultrasound Chlamydia DNA (KATHE) Negative (Negative) N.gonorrhoeae DNA (KATHE) Negative (Negative) Assessment & Plan (1) Missed : COMMENT: plan suction d and c PLAN: Plan After discussing the patient's diagnosis and treatment plan options, patient wishes to proceed with surgical management. I have discussed with the patient the risks, benefits, and alternatives of the procedure which include but are not limited to risks of anesthesia, bleeding, infection, possible damage to bowel, bladder, or surrounding vasculature which could lead to additional surgery to evaluate any complications. Patient agrees to procedure and wishes to proceed. ACOG/uptodate references given for additional information regarding procedure.
[2023-11-26 10:40] LABS: Hematocrit 42.1 % (37-47); Hemoglobin 14.2 g/dL (12.0-15.0); Mean Corp Hgb Conc 33.7 g/dL (32-36); Mean Corpuscular Hgb 29.2 pg (27.0-32.0); Mean Corpuscular Volume 86.4 fL (81-99); Mean Platelet Vol. 9.4 fl (6.2-12.0); Platelet Count 249 K/mm3 (150-450); RBC Distribution Width CV 13.7 % (11.6-14.6); RBC Distribution Width SD 43.3 fl (35.1-43.9); Red Blood Count 4.87 M/mm3 (4.2-5.4); White Blood Count 9.3 K/mm3 (4.4-11.0)
[2023-11-26] MEDS: Doxycycline 100 MG CAPSULE PO (10:49)
[2023-11-26] MEDS: Lactated Ringers 1,000 ML 15 ML IV (10:50)
--- NOTE | 2023-11-26 11:06 | PCM.PRE.AN2 ---
ASA Classification* ASA Classification ASA Classification: 2 Assessment & Plan Anesthesia* Anesthesia Assessment Anesthesia Assessment: Discussed sedation and/or anesthesia options, risks, benefits, and alternatives with patient/parents/legal guardian/POA. Questions invited. The patient/parents/legal guardian/POA seems to understand and agrees to proceed with anesthesia plan. Reviewed the physical assessment, medical history, allergy history and patient home medications list prior to surgery/procedure/anesthetic and documented any changes. Performed airway and anesthesia risk assessments. Anesthesia Type Anesthesia Type: MAC History Source History Obtained from:: Patient and Chart Anesthesia Focused Assessment* Temperature: 98.6 F Pulse Rate: 102 Blood Pressure: 150/75 Respiratory Rate: 16 Pulse Ox: 100 Oxygen Delivery Method: Room Air Airway Assessment Mouth opens: >3 cm Mallampati Score: III Teeth Condition: Chipped/Broken (Right lower molar has a chipped) and Missing (1 missing molar left upper) Neck Range of motion (ROM): Full ROM Focused Labs Anesthesia Preop lab: CBC WBC 9.3 K/mm3 (4.4-11.0) 11/26/23 10:30 RBC 4.87 M/mm3 (4.2-5.4) 11/26/23 10:30 Hgb 14.2 g/dL (12.0-15.0) 11/26/23 10:30 Hct 42.1 % (37-47) 11/26/23 10:30 Plt Count 249 K/mm3 (150-450) 11/26/23 10:30 CHEMISTRY TSH 1.05 uIU/mL (0.358-3.74) 05/30/21 14:00 COAG HCG, Quant 9700 mIU/mL (1-3) H 11/16/23 13:50 Urine Test Negative Negative 02/26/22 08:28 Tst Clinic Negative 05/30/21 15:37 Pre-Assessment Diagnosis/Proposed Procedure Planned Operative Procedure(s): SUCTION DILATION AND CURETTAGE Anesthesia History Anesthesia History - exchange specialist: Anesthesia History - exchange specialist Hx Hospitalization No 11/26/23 10:42 Any Problems With Anesthesia No 11/26/23 10:42 Cholinesterase deficiency No 11/26/23 10:42 You/Your Family Experience No 11/26/23 10:42 fever (hyperthermia) with Relationship Recent Exposure to Contagious No 11/26/23 10:46 Disease Does patient have nerve No 11/26/23 10:42 stimulator Patient instructed to have device shut off --Does patient have Pacemaker No 11/26/23 10:46 or ICD? When Was Last Pacemaker Check QUESTION #4 FULL TEXT: You/Your Family Experience fever (hyperthermia) with Anesthesia Last Oral Intake Last Oral intake: Last Oral Intake NPO since 20:00 11/26/23 10:46 Meds taken in AM with sips of No 11/26/23 10:46 water? Meds patient instructed to take am of surgery PONV PONV - exchange specialist: PONV - exchange specialist Female Yes 11/26/23 10:42 HX of Motion Sickness No 11/26/23 10:42 HX of N/V After Surgery No 11/26/23 10:42 Non-Smoker Yes 11/26/23 10:42 Duration of Surgery greater No 11/26/23 10:42 than 60 minutes Number of Risk Factors 2 11/26/23 10:42 PONV Score Moderate Risk 11/26/23 10:42 Height & Weight Height & Weight: Anesthesia: Height & Weight Height 5 ft 9 in 11/26/23 10:46 Weight: 107 kg 11/26/23 10:46 Body Mass Index (BMI) 34.8 11/26/23 10:46 Respiratory Assessment Respiratory Assessment - exchange specialist: Respiratory Tract Infection Hx - exchange specialist Hx Respiratory Tract Infection No 11/26/23 10:42 Any additional information?: Yes Hx Respiratory Tract Infection: Yes (She had a sinus infection about 1 to 2 weeks ago. Still residual cough.) STOP Sleep Apnea STOP Sleep Apnea - exchange specialist: STOP Sleep Apnea - exchange specialist Hx Hypertension No 11/26/23 10:42 Hx Sleep Apnea No 11/26/23 10:42 CPAP BIPAP Do you snore loudly (louder No 11/26/23 10:42 than talking or can be heard Do you often feel tired/ No 11/26/23 10:42 fatigued/ sleepy during daytime? Has anyone observed you stop No 11/26/23 10:42 breathing during sleep? STOP Results Negative 11/26/23 10:42 QUESTION #5 FULL TEXT : Do you snore loudly (louder than talking or can be heard through closed doors)? 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 Specify any problems Hx of Preganancy in last 3 Yes 11/26/23 10:42 Months Nurse Filling Out Transfusion [id number] 11/26/23 10:42 & Questions: Date: 11/26/23 11/26/23 10:42 Time: 10:45 11/26/23 10:42 Patient unable to answer at this time (ie. confused, unrespo /Reproduction History /Reproductive History - exchange specialist: /Reproductive Hx- exchange specialist Hx Now Yes: HERE FOR D&C 11/26/23 10:42 Gestational Age (in weeks): EDC: Hx Hx Para Hx Section SAB No 11/26/23 10:42 Active Medications Active Medications: Current Medications Generic Name Dose Route Start Last Admin Trade Name Freq PRN Reason Stop Dose Admin Doxycycline Monohydrate 100 mg 11/26/23 12:00 11/26/23 10:49 Doxycycline 100 Mg Capsule PO 11/26/23 12:01 100 mg PREOP ONE Administration Lactated Ringer's 1,000 mls @ 15 mls/hr 11/26/23 10:00 11/26/23 10:50 IV 15 mls/hr .Q48H REESE Administration PFSH Medical History Wears glasses Heartburn Non-smoker Bartholin cyst Allergy/AdvReac Type Severity Reaction Status Date / Time No Known Allergies Allergy Verified 11/26/23 10:42 Family History Father Hypertension Grandmother Hypertension Surgical History Status post laparoscopy (~02/26/22) Hx of tooth extraction Social History adopted: No household members: spouse current occupational status: employed 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 occupational exposures/hazards: No pets and animals: Yes (outside) pets and animals: dog(s) history of recent travel: No sexually active: Yes Smoking Status: Never smoker alcohol intake: current alcohol intake frequency: holidays/special occasions only details: not while substance use type: does not use diet: gluten free and lactose free well-balanced diet: daily or most days caffeine: No eating out: rarely or never during the past year weight has: remained stable what type of physical activity do you participate in: walking frequency: 5-6 times per week duration: 15-30 minutes/day preethi/scientology: [employer] seatbelt use: sometimes do you feel safe at home: Yes additional social history: - Eri: [employer] Review of Systems (Anesthesia) ROS Narrative System reviewed and no additional complaints, except as documented.
--- NOTE | 2023-11-26 12:44 | OP.PCM_ITS ---
Report of Operation Pre-Operative Diagnosis: see problem list Post-Operative Diagnosis: same Surgery/Procedure Performed:: Suction dilation and curettage Description of Surgical Findings:: no FHT present, Nonviable 6-7 weeks Surgeon: Elsy Sanabria equipment maintenance superintendent: None Type of Anesthesia: Local MAC Special Medications: none Specimen's removed: POC Drains: none Estimated Blood Loss (mL): 50 Fluids Replaced: crystalloid Description of Procedure: Patient was taken to the operating room and placed under MAC local anesthesia. She was prepped and draped in the normal sterile fashion the dorsal lithotomy position. Bladder was drained of clear urine and anterior lip of the cervix was grasped and the uterus sounded to 8 cm. Cervix was progressively dilated to allow passage of a 8mm suction curette. Progressive passes were made removing the retained products of conception without complication. Sharp curettage confirmed complete removal of the retained products. All instruments were removed from the vagina and excellent hemostasis was noted and the patient was taken to recovery in stable condition. Grafts/Implants Used: none Procedure Start Time: 12:50 Procedure Stop Time: 12:56 Complications none Admit VTE Documentation VTE Present on Admission: No VTE Mechan Device Prophylaxis: SCD's Procedures Urinary/Genital 52xxx-59xxx: 55446 Trmt of incomplete Ab, any TM
--- NOTE | 2023-11-26 12:44 | DCINST_ITS ---
Discharge Instructions Diet Discharge Diet: No restrictions Activity Discharge Activity: Return to Normal Activity, May Shower and May Take a Tub Bath (after 1 week) May resume sexual activity in: 1-2 weeks Weight Bearing Status: Weight bearing as tolerated Lifting Restrictions: none Dressing / Incision Call your doctor if you observe: Fever of 101 or Higher, Using more than 1 pad per hour, Shortness of breath and Uncontrolled pain Follow Up Care Please Follow Up With: Elsy Sanabria MD When: Call [phone] to schedule appointment. Test Results: Test results from this visit will be discussed in further detail at your follow- up appointment, if applicable. Discharge Plan Admission Attending Provider: Elsy Sanabria Primary Care Provider: Samara Lazaro Instructions Print Language: Citizen Of [place] Discharge Orders/Prescriptions Referrals / Follow Up: Samara Lazaro PA-Olinda [Primary Care Provider] - Disposition Disposition (needs filled in before D/C Order can be placed): Home, Self Care
[2023-11-26] MEDS: Lidocaine 1% (30 ml sdv) 30 ML Vial (12:50)
--- NOTE | 2023-11-26 13:07 | PCM.POST.ANE ---
Anesthesia: Postop Eval I Current Vital Signs Temperature: 98.4 F Pulse Rate: 98 Blood Pressure: 129/85 Respiratory Rate: 16 Pulse Ox: 96 Oxygen Delivery Method: Room Air Assessment Airway patent: Yes Spontaneous unlabored respirations: Yes Mental status: Awake and Calm nausea: No Vomiting: No Anesthesia Complication: No Fluid Hydration Crystalloid volume administer (ml): 800 Total IV fluid infused: 800 Progress Note Anesthesia document: Postop Eval 1 completed: Yes
--- NOTE | 2023-11-26 13:34 | POSTOPAN2_ITS ---
Anesthesia Postop Eval I Sum Postop Eval Completion status Anesthesia document: Postop Eval 1 completed: Yes Anesthesia Postop Eval I Summary Anesthesia Postop Eval I Summary: Anesthesia Postop Eval I: Assessment Summary Airway patent Yes 11/26/23 13:08 MIXER LEVER [email or web address] Spontaneous unlabored Yes 11/26/23 13:08 MIXER LEVER OPERATOR.[email or web address] respirations Mental status Awake,Calm 11/26/23 13:08 MIXER LEVER OPERATOR.[email or web address] nausea No 11/26/23 13:08 MIXER LEVER OPERATOR.[email or web address] Vomiting No 11/26/23 13:08 MIXER LEVER OPERATOR.[email or web address] Anesthesia Postop Eval I: Fluid Summary Crystalloid volume administer 800 11/26/23 13:08 MIXER LEVER OPERATOR.[email or web address] (ml) Colloids volume administered ( ml) Blood Product volume administered (ml) Total IV fluid infused 800 11/26/23 13:08 MIXER LEVER [email or web address].[email or web address] Anesthesia Postop Eval I: Summary Notes Anesthesia Complication No 11/26/23 13:08 MIXER LEVER [email or web address].[email or web address] Anesthesia Complication Comment: Post-operative progress note Anesthesia: Postop Eval II Evaluation Mental status: Awake and Calm Pain Level: 1 nausea: No Vomiting: No Complications Anesthesia Complication: No
--- NOTE | 2023-11-26 13:34 | PCM.POSTANE2 ---
Anesthesia Postop Eval I Sum Postop Eval Completion status Anesthesia document: Postop Eval 1 completed: Yes Anesthesia Postop Eval I Summary Anesthesia Postop Eval I Summary: Anesthesia Postop Eval I: Assessment Summary Airway patent Yes 11/26/23 13:08 ENGINEERING EQUIPMENT OPERATOR.[email or web address] Spontaneous unlabored Yes 11/26/23 13:08 ENGINEERING EQUIPMENT OPERATOR.[email or web address] respirations Mental status Awake,Calm 11/26/23 13:08 ENGINEERING EQUIPMENT OPERATOR.[email or web address] nausea No 11/26/23 13:08 ENGINEERING EQUIPMENT OPERATOR.[email or web address] Vomiting No 11/26/23 13:08 ENGINEERING EQUIPMENT OPERATOR.BHAVINLOKillian Anesthesia Postop Eval I: Fluid Summary Crystalloid volume administer 800 11/26/23 13:08 ENGINEERING EQUIPMENT OPERATOR.RAOUL (ml) Colloids volume administered ( ml) Blood Product volume administered (ml) Total IV fluid infused 800 11/26/23 13:08 ENGINEERING EQUIPMENT OPERATOR.RAOUL Anesthesia Postop Eval I: Summary Notes Anesthesia Complication No 11/26/23 13:08 ENGINEERING EQUIPMENT OPERATOR.RAOUL Anesthesia Complication Comment: Post-operative progress note Anesthesia: Postop Eval II Evaluation Mental status: Awake and Calm Pain Level: 1 nausea: No Vomiting: No Complications Anesthesia Complication: No
== END 2023-11-26 14:48 | disposition home or self-care (01) ==
LOC: SDC 09:53 → AC 09:54
PROVIDERS: PCP Family Medicine; Referring Provider Obstetrics & Gynecology; Visit Provider Obstetrics & Gynecology
PROC: (CPT 59820; principal; 2023-11-26 11:45)
DX: O02.1 Missed abortion (principal)
CPT/HCPCS: 59820; 01965; 85027; 86850; 86900; 86901; 88305; J7120; J2405

== ENCOUNTER → 2023-12-17 | Outpatient (CLI) | payer OTHER, SELFPAY ==
[2023-12-17 14:24] LABS: hCG Titer Quant., Serum 2 mIU/mL (1-3)
== END | disposition home or self-care (01) ==
LOC: LAB 13:18
PROVIDERS: PCP Family Medicine; Referring Provider Obstetrics & Gynecology; Visit Provider Obstetrics & Gynecology
DX: O02.1 Missed abortion (principal)
CPT/HCPCS: 36415; 84702

== ENCOUNTER → 2024-02-10 | Outpatient (CLI) | payer OTHER, SELFPAY ==
[2024-02-10 13:48] LABS: hCG Titer Quant., Serum 86 mIU/mL (1-3)
== END | disposition home or self-care (01) ==
LOC: LAB 12:25
PROVIDERS: PCP Family Medicine; Referring Provider Advanced Practice Midwife; Visit Provider Advanced Practice Midwife
DX: O09.299 Supervision of pregnancy with other poor reproductive or obstetric history, unspecified trimester (principal); Z3A.00 Weeks of gestation of pregnancy not specified
CPT/HCPCS: 36415; 84702

== ENCOUNTER → 2024-02-12 | Outpatient (CLI) | payer OTHER, SELFPAY ==
[2024-02-12 13:43] LABS: hCG Titer Quant., Serum 151 mIU/mL (1-3)
== END | disposition home or self-care (01) ==
LOC: LAB 12:52
PROVIDERS: PCP Family Medicine; Referring Provider Advanced Practice Midwife; Visit Provider Advanced Practice Midwife
DX: O09.299 Supervision of pregnancy with other poor reproductive or obstetric history, unspecified trimester (principal); Z3A.00 Weeks of gestation of pregnancy not specified
CPT/HCPCS: 36415; 84702

== ENCOUNTER → 2024-03-08 | Outpatient (CLI) | payer OTHER, SELFPAY ==
[2024-03-11 06:09] LABS: Chlamydia By Nucleic Acid AMP Negative (Negative); Gonococcus By Nucleic Acid AMP Negative (Negative)
== END | disposition home or self-care (01) ==
LOC: LABSPEC 14:35
PROVIDERS: PCP Family Medicine; Referring Provider Advanced Practice Midwife; Visit Provider Advanced Practice Midwife
DX: O99.210 Obesity complicating pregnancy, unspecified trimester (principal); Z3A.00 Weeks of gestation of pregnancy not specified
CPT/HCPCS: 87086; 87491; 87591

== ENCOUNTER → 2024-03-25 | Outpatient (CLI) | payer OTHER, SELFPAY ==
[2024-03-25 12:11] LABS: Absolute Lymphocyte Count 1.67 X10^3/uL (0.83-4.51); Absolute Neutrophil Count 6.8 X10^3/uL (2.0-7.7); Basophil# 0.04 X10^3/uL; Basophil% 0.4 % (0-1); Eosinophil# 0.05 X10^3/uL; Eosinophils% 0.5 % (0-5); Hematocrit 43.4 % (37-47); Hemoglobin 14.8 g/dL (12.0-15.0); Lymphocyte # 1.67 X10^3/ul (0.83-4.51); Lymphocyte % 17.3 % (19-41); Mean Corp Hgb Conc 34.1 g/dL (32-36); Mean Corpuscular Hgb 30.4 pg (27.0-32.0); Mean Corpuscular Volume 89.1 fL (81-99); Mean Platelet Vol. 9.8 fl (6.2-12.0); Monocyte# 0.73 X10^3/uL; Monocyte% 7.6 % (0-10); NRBC Flagged by Analyzer 0 % (0-5); Neutrophil # 6.82 X10^3/uL (2.7-7.7); Neutrophil % 70.7 % (47-70); Platelet Count 244 K/mm3 (150-450); RBC Distribution Width CV 13.2 % (11.6-14.6); RBC Distribution Width SD 43.4 fl (35.1-43.9); Red Blood Count 4.87 M/mm3 (4.2-5.4); White Blood Count 9.7 K/mm3 (4.4-11.0)
[2024-03-25 12:28] LABS: ALB/GLOB Ratio 0.9 RATIO (0.9-2.4); AST(SGOT) 12 U/L (15-37); Alanine Aminotransfer ALT/SGPT 20 U/L (13-56); Alkaline Phosphatase 74 U/L (45-117); Anion Gap 8 (5-15); BUN 7 mg/dL (7-18); BUN/Creat Ratio 9.9 RATIO (10-20); Calcium,Total 9.6 mg/dL (8.5-10.1); Chloride 106 mmol/L (98-107); Creatinine, Serum 0.71 mg/dL (0.55-1.02); EST Glomerular Filtration Rate 107 mL/min (>60); Est Glom Filt Rate - Afr Amer 129 mL/min (>60); Globulin 4.4 g/dL (2.2-4.2); Glucose 88 mg/dL (74-106); Potassium 3.5 mmol/L (3.5-5.1); Protein, Total 8.4 g/dL (6.4-8.2); Sodium Level 136 mmol/L (136-145)
[2024-03-25 12:48] LABS: Hemoglobin A1c 5.2 % (3.8-5.6)
[2024-03-25 13:09] LABS: HIV - WCH Non-Reactive (Nonreactive); Hepatitis B Surface Antigen Non-Reactive (Nonreactive); Hepatitis C Antibody Non-Reactive (Nonreactive); Rubella IgG Non-Reactive (Nonreactive); Syphilis Antibodies Non-reactive
== END | disposition home or self-care (01) ==
LOC: BWCLAB 10:43
PROVIDERS: PCP Family Medicine; Referring Provider Advanced Practice Midwife; Visit Provider Advanced Practice Midwife
DX: O99.210 Obesity complicating pregnancy, unspecified trimester (principal); R03.0 Elevated blood-pressure reading, without diagnosis of hypertension; Z3A.00 Weeks of gestation of pregnancy not specified; O99.891 Other specified diseases and conditions complicating pregnancy
CPT/HCPCS: 36415; 80053; 83036; 85025; 86703; 86762; 86780; 86803; 86850; 86900; 86901; 87340

== ENCOUNTER → 2024-03-31 | Outpatient (CLI) | payer OTHER, SELFPAY ==
--- NOTE | 2024-03-31 11:22 | US_ITS ---
STUDY: FIRST TRIMESTER OBSTETRICAL ULTRASOUND REASON FOR EXAM: Female, 23 years old viability . The patient has been spotting for 3 days. LMP: January 13, 2024. TECHNIQUE: Transvaginal TECHNICAL QUALITY: Adequate. PRIOR ULTRASOUND: None. FINDINGS: There is visualization of a single gestational sac in a normal intrauterine position. The mean sac diameter (MSD) measures 4.17 cm, indicating an estimated gestational age (EGA) of 9 weeks, 5 days. The gestational sac shape is within normal limits. There is a visualized yolk sac. The yolk sac measures 4.3 mm. Posterior placenta. There is visualization of a live embryo. The crown-rump length (CRL) measures 4.62 cm, indicating an estimated gestational age (EGA) of 11 weeks, 2 days. There is demonstrated cardiac activity with a heart rate of 174 bpm. The estimated gestation age (EGA) by LMP is 11 weeks, 1 days. The estimated date of delivery (CRISTINA) by LMP is October 19, 2024. The estimated gestation age (EGA) by US is 10 weeks, 4 days. The estimated date of delivery (CRISTINA) by US is October 23, 2024. The uterus measures 11.3 cm x 8.5 cm x 6.6 cm. There is a small subchorionic hematoma measuring 1.7 cm x 3.1 cm x 1.1 cm. There is no demonstrated uterine fibroid. The cervix is closed. The right ovary measures 5.5 cm x 5.2 cm x 2.2 cm. There is no right ovarian cyst. There is no visualized right adnexal mass or complex lesion. The left ovary measures 5.4 cm x 5.1 cm x 2 cm. There is no left ovarian cyst. There is no visualized left adnexal mass or complex lesion. There is no fluid in the cul de sac. US/Transvaginal w/Preg US IMPRESSION: Single live intrauterine gestation with a mean gestational age of 10 weeks 4 days. Small subchronic hematoma. Electronically Signed: Oscar Ray MD at 13:10 EST ,
== END | disposition home or self-care (01) ==
LOC: US 11:21
PROVIDERS: PCP Family Medicine; Referring Provider Nurse Practitioner Women's Health; Visit Provider Nurse Practitioner Women's Health
DX: O20.9 Hemorrhage in early pregnancy, unspecified (principal); O09.299 Supervision of pregnancy with other poor reproductive or obstetric history, unspecified trimester; Z3A.00 Weeks of gestation of pregnancy not specified
CPT/HCPCS: 76817

== ENCOUNTER → 2024-04-06 | Outpatient (CLI) | payer OTHER, SELFPAY ==
[2024-04-06 17:13] LABS: Protein, Urine (Random) < 6.0 mg/dL (<11.9); Protein:Creat Ratio 187 mg/g CRE (0-200)
== END | disposition home or self-care (01) ==
PROVIDERS: Advanced Practice Midwife; PCP Family Medicine; Referring Provider Obstetrics & Gynecology; Visit Provider Obstetrics & Gynecology
DX: Z34.01 Encounter for supervision of normal first pregnancy, first trimester (principal); R03.0 Elevated blood-pressure reading, without diagnosis of hypertension
CPT/HCPCS: 82570; 84156

== ENCOUNTER 2024-07-22 15:29 | Outpatient (CLI) | payer OTHER, SELFPAY ==
--- NOTE | 2024-07-22 15:43 | US_ITS ---
PROCEDURE: OB LIMITED WITH BIOMETRICS REASON FOR EXAM: Pain, rule out labor COMPARISON: None FINDINGS Single live intrauterine in breech position with a heart rate of 136 beats per minute. Placenta is anterior and within normal limits. Cervical length measures 3.8 cm. Cervical os is closed. Amniotic fluid is within normal limits (12.1 cm). Detailed anatomy was not assessed. Biparietal diameter measures 6.9 cm. OFD measures 8.8 cm. Head circumference measures 25.3 cm. Abdominal circumference measures 22.3 cm. Femur length measures 5.0 cm. Estimated ultrasound age is 27 weeks 1 day. Estimated weight is 1006 g +/-151 g. US/OB Limited With Biometrics IMPRESSION: Single live intrauterine as above. Reading Location: [facility]
[2024-07-22 16:15] LABS: ROM Internal Control Test YES-OK TO RESULT pt. (Internal QC); ROM Patient Test Negative (Negative); Record Kit Lot#, ROM+ K2871
--- NOTE | 2024-07-22 17:27 | OB.TRI.PN ---
Progress Notes Date of Service: 07/22/24 Progress Note: Patient presents for triage evaluation secondary to posisble ROM co discharge FHT: 140 Moderate variability reactive no decelerations category I tracing [place]: isolated Contractions Assessment and plan: amniotic membranes intact rom plus negativ enl niels and growth reviewed precautions for ROM Reactive NST, reassuring maternal and status patient discharged to home to follow-up as scheduled. See problem list details for additional plan information. Laboratory Studies: Laboratory Tests 07/22/24 Range/Units 15:30 Vag Amniotic Fld Detect Negative (Negative) Charges/Coding Procedures Urinary/Genital 52xxx-59xxx: 65768-47 non-stress test Interp
[2024-07-22 17:36] VITALS: BMI 35.3
== END 2024-07-22 17:35 | disposition home or self-care (01) ==
LOC: LABSPEC 15:30 → WPOUT 15:39 → WP 15:39
PROVIDERS: PCP Family Medicine; Referring Provider Obstetrics & Gynecology; Visit Provider Obstetrics & Gynecology
DX: O32.1XX0 Maternal care for breech presentation, not applicable or unspecified (principal); Z3A.27 27 weeks gestation of pregnancy
CPT/HCPCS: 59025; 59050; 76816; 84112; 99221; G0378

== ENCOUNTER → 2024-07-22 | Outpatient (CLI) | payer OTHER, SELFPAY | END | disposition home or self-care (01) | PROVIDERS: PCP Family Medicine; Referring Provider Obstetrics & Gynecology; Visit Provider Obstetrics & Gynecology | DX: O26.899 Other specified pregnancy related conditions, unspecified trimester (principal); N89.8 Other specified noninflammatory disorders of vagina; Z3A.00 Weeks of gestation of pregnancy not specified | CPT/HCPCS: 87070; 87205 ==

== ENCOUNTER 2024-07-23 01:37 | Outpatient (CLI) | payer OTHER, SELFPAY ==
[2024-07-23 01:44] VITALS: BMI 37.3
[2024-07-23 01:56] VITALS: PULSE 118; O2SAT 97
[2024-07-23 01:57] VITALS: BP 134/82; PULSE 118; RESP 16; TEMP 36.4
[2024-07-23 02:09] LABS: Color, Urine Red (Yellow); Glucose, Dipstick Normal (Normal); Ketone-Dipstick Negative (Negative); Leukocyte Esterase-Dipstick 25 /ul (Negative); Nitrite-Dipstick Negative (Negative); Occult Blood-Urine 250 /ul (Negative); Protein-Dipstick 30 mg/dl (Negative); Specific Gravity, Urine 1.015 (1.002-1.030); Urine Bilirubin Dipstick Negative (Negative); Urine Clarity Cloudy (Clear); Urine Urobilinogen Normal (Normal); Urine pH 6.5 (5.0 - 8.0)
[2024-07-23] MEDS: Betamethasone/Betamethasone 30 MG/5 ML Vial 12 MG IM (02:32)
[2024-07-23 02:33] LABS: Absolute Lymphocyte Count 1.93 X10^3/uL (0.83-4.51); Absolute Neutrophil Count 9.4 X10^3/uL (2.0-7.7); Basophil# 0.04 X10^3/uL; Basophil% 0.3 % (0-1); Eosinophil# 0.17 X10^3/uL; Eosinophils% 1.4 % (0-5); Hematocrit 35.2 % (37-47); Hemoglobin 11.9 g/dL (12.0-15.0); Lymphocyte # 1.93 X10^3/ul (0.83-4.51); Lymphocyte % 15.5 % (19-41); Mean Corp Hgb Conc 33.8 g/dL (32-36); Mean Corpuscular Hgb 30.8 pg (27.0-32.0); Mean Corpuscular Volume 91.2 fL (81-99); Mean Platelet Vol. 9.8 fl (6.2-12.0); Monocyte# 0.85 X10^3/uL; Monocyte% 6.8 % (0-10); NRBC Flagged by Analyzer 0 % (0-5); Neutrophil # 9.37 X10^3/uL (2.7-7.7); Platelet Count 219 K/mm3 (150-450); RBC Distribution Width CV 13.1 % (11.6-14.6); RBC Distribution Width SD 42.9 fl (35.1-43.9); Red Blood Count 3.86 M/mm3 (4.2-5.4); White Blood Count 12.5 K/mm3 (4.4-11.0)
[2024-07-23 02:36] LABS: ROM Internal Control Test YES-OK TO RESULT pt. (Internal QC); ROM Patient Test Negative (Negative); Record Kit Lot#, ROM+ K2871
[2024-07-23 02:43] LABS: Fibrinogen 596 mg/dl (203-444)
[2024-07-23 04:19] VITALS: BP 131/75; PULSE 79; RESP 16; TEMP 36.6
[2024-07-23 07:42] VITALS: BP 124/80; PULSE 93
[2024-07-23 08:59] LABS: Absolute Lymphocyte Count 1.03 X10^3/uL (0.83-4.51); Absolute Neutrophil Count 11.2 X10^3/uL (2.0-7.7); Basophil# 0.03 X10^3/uL; Basophil% 0.2 % (0-1); Eosinophil# 0.01 X10^3/uL; Eosinophils% 0.1 % (0-5); Hematocrit 38.3 % (37-47); Hemoglobin 12.8 g/dL (12.0-15.0); Lymphocyte # 1.03 X10^3/ul (0.83-4.51); Lymphocyte % 8.2 % (19-41); Mean Corp Hgb Conc 33.4 g/dL (32-36); Mean Corpuscular Hgb 30.6 pg (27.0-32.0); Mean Corpuscular Volume 91.6 fL (81-99); Mean Platelet Vol. 9.5 fl (6.2-12.0); Monocyte# 0.15 X10^3/uL; Monocyte% 1.2 % (0-10); NRBC Flagged by Analyzer 0 % (0-5); Neutrophil # 11.24 X10^3/uL (2.7-7.7); Neutrophil % 89.3 % (47-70); Platelet Count 227 K/mm3 (150-450); RBC Distribution Width CV 12.9 % (11.6-14.6); RBC Distribution Width SD 43.6 fl (35.1-43.9); Red Blood Count 4.18 M/mm3 (4.2-5.4); White Blood Count 12.6 K/mm3 (4.4-11.0)
[2024-07-23 09:26] LABS: Fibrinogen 723 mg/dl (203-444)
[2024-07-23 10:42] VITALS: BP 124/72; PULSE 90
--- NOTE | 2024-07-24 23:51 | OB.TRI.HP_ITS ---
HPI - General General Date of Admission: 07/23/24 HPI Narrative STARLA LAM, is a 23 F who presents 27 weeks with vaginal bleeding quesitonable LOF no regular ctx feels good fm Maternal Data Information CRISTINA Calculator Estimated Delivery Date Method Current WG Current Estimate 10/19/24 LMP (Certain) 27w 4d Other Estimates 10/15/24 Ultrasound #1 28w 1d PFSH PFSH Medical History Seasonal allergies Fertility testing PCOS (polycystic ovarian syndrome) Infertility Infertility associated with anovulation Supervision of high-risk Wears glasses Heartburn Non-smoker Bartholin cyst Home Medications ?Medication ?Instructions ?Recorded ?Last Taken ?Type inositol 500 mg tablet 2,000 mg PO DAILY 03/02/24 U nknown History magnesium 200 mg tablet 400 mg PO QDAY 03/02/24 03/11/10 12:00 History multivitamin no.47-iron fum 27 1 cap PO DAILY pregnanc y 03/02/24 07/22/24 12:00 History mg-folate no.1 1 mg-dha 300 mg capsule (PNV-DHA) aspirin 81 mg tablet,delayed 81 mg PO QDAY 05/31/24 12:00 History release (Adult Aspirin Regimen) labetalol 100 mg tablet 100 mg PO BID #60 tabs 07/0107/22/24 14:30 Rx Allergy/AdvReac Type Severity Reaction Status Date / Time No Known Allergies Allergy Verified 07/24/24 09:14 Family History Father Hypertension Grandmother Hypertension Surgical History S/P D&C (status post dilation and curettage) Status post laparoscopy (~02/26/22) Hx of tooth extraction Social History adopted: No household members: spouse current occupational status: unemployed current occupational exposures/hazards: No pets and animals: Yes (outside) pets and animals: dog(s) history of recent travel: Yes (- February ) out of state: Yes out of country: No sexually active: Yes Smoking Status: Never smoker alcohol intake: current alcohol intake frequency: holidays/special occasions only details: not while substance use type: does not use diet: gluten free and lactose free well-balanced diet: daily or most days caffeine: No eating out: rarely or never during the past year weight has: remained stable what type of physical activity do you participate in: walking frequency: 1-2 times per week duration: 15-30 minutes/day preethi/faith: Judaism seatbelt use: sometimes do you feel safe at home: Yes additional social history: - Eri: [employer] History 2 Elective abortions Hx Para 0 Spontaneous abortions 1 Hx # Term Pregnancies Ectopic pregnancies Hx # Pregnancies Multiple births # of living children 0 Past Pregnancies Del. Date Name GA/Weeks Outcome Route Bth Weight Gen Labor Lgth Anesthesia Del Locatn Provider FOB 11/26/23 D+C 6 spontaneous Visit Details Expected Delivery Route/Plan Labor Preferences- CB/BF classes: [] labor support person: [] labor intervention preferences: [] pain management options preferred: [] cut cord/dad catch: [] : [] PP control planned: [] discussed possible routes of delivery and associated risks: [] special requests: [] Plans Covid status: [] Flu vaccine: declined Tdap vaccine: [] Rhogam: [] LARC form signed: [] Problem list reviewed and updated with the most current plan of care details and appropriate orders placed. Relevant counseling for the gestational age provided. Continue routine care and follow up unless otherwise noted in visit notes/problem list details OB Flowsheet Initial Weight: 236 lb Date -?-?-?-?-?-?-?-?-?-?-?-?- EGA Weight BP Urine Prot -?-?-?-?-?-?-?-?-?-?-?--?- Glucose FHR FuHt Pres Dilation -?-?-?-?-?-?-?-?-?-?-?-?- Effaced St Visit Note 03/08/24 -?-?-?-?-?-?-?-?-?-?-?-?- 7w 6d 236 lb (+0 oz) 145/85 -?-?-?-?-?-?-?-?-?-?-?-?- 160 -?-?-?-?-?-?-?-?-?-?-?-?- KW- CRL cons wit h dates. accepts NIPT. return to office in 2 weeks for FHT, BP check, and labs. 03/25/24 -?-?-?-?-?-?-?-?-?-?-?-?- 10w 2d 238 lb (+2 lb) 137/96 140/86 Negative -?-?-?-?-?-?-?-?-?-?-?-?- Negative 171 -?-?-?-?-?-?-?-?-?-?-?-?- KW- doing well. CRL still cons with dates. Labs today. ASA recommended 04/06/24 -?-?-?-?-?-?-?-?-?-?-?-?- 12w 0d 240 lb 6 oz (+4 lb 6 oz) 146/83 Negative -?-?-?-?-?-?-?-?-?-?-?-?- Negative 154 -?-?-?-?-?-?-?-?-?-?-?-?- JV- no cramping or spotting. no REESE today. still nauseated. rpt NIPT today. JV- no cramping or spotting. no REESE today. still nauseated. rpt NIPT today. Still having high blood pressure. baseline FL:Cr ordered. starting procardia. mfm ultrasound ordered. 05/07/24 -?-?-?-?-?-?-?-?-?-?-?-?- 16w 3d 244 lb 8 oz (+8 lb 8 oz) 151/83 134/86 Negative -?-?-?-?-?-?-?-?-?-?-?-?- Negative 150 -?-?-?-?-?-?-?-?-?-?-?-?- SM- no vb lof cr amping bps WNL 05/31/24 -?-?-?-?-?-?-?-?-?-?-?-?- 19w 6d 250 lb (+14 lb) 149/89 123/85 Negative -?-?-?-?-?-?-?-?-?-?-?-?- Negative 145 20 -?-?-?-?-?-?-?-?-?-?-?-?- KW- no vb/lof/ct x. good fm. had reviewed BPs from home at last visit and decided she did not need Procardia. Home bps are 120/70. KW- no vb/lof/ctx. good fm. had reviewed BPs from home at last visit and decided she did not need Procardia. Home bps are 120/70. Procardia was giving pt a headache when she took it. additional US views scheduled with [facility] 07/01/24 -?-?-?-?-?-?-?-?-?-?-?-?- 24w 2d 254 lb 4 oz (+18 lb 4 oz) 142/94 Negative -?-?-?-?-?-?-?-?-?-?-?-?- Negative 150 -?-?-?-?-?-?-?-?-?-?-?-?- JV- still has el evated pressures here and a heart rate of 125. states heart races at home. will try a beta oralia. RTO in 1 week for bp check 07/08/24 -?-?-?-?-?-?-?-?-?-?-?-?- 25w 2d 256 lb (+20 lb) 148/84 Negative -?-?-?-?-?-?-?-?-?-?-?-?- Negative -?-?-?-?-?-?-?-?-?-?-?-?- SM reviewed with patient needs to take full amount of medication- she wasn't because it made her scalp tingle, she states bps nl at home, but fan tart taking full amount, fu in office next week for bp check 07/22/24 -?-?-?-?-?-?-?-?-?-?-?-?- 27w 2d 254 lb (+18 lb) 126/86 Negative -?-?-?-?-?-?-?-?-?-?-?-?- Negative 155 0 -?-?-?-?-?-?-?-?-?-?-?-?- JV- pt presents with the complaint of seeing blood tinged discharge. she states that she always has a yellow discharge. on exam there is pooling of fluid suspicious for ROM. sending to L&D now for us and sending ROM plus now. ROS Constitutional Constitutional: Reports systems reviewed and no addt'l complaints, except as documented and as per HPI ENT HEENT: Reports systems reviewed and no addt'l complaints, except as documented Cardiovascular Cardiovascular: Reports systems reviewed and no addt'l complaints, except as documented Respiratory/Chest Respiratory/Chest: Reports systems reviewed and no addt'l complaints, except as documented Gastrointestinal Gastrointestinal: Reports as per HPI Genitourinary Genitourinary: Reports as per HPI Musculoskeletal Musculoskeletal: Reports systems reviewed and no addt'l complaints, except as documented Integumentary Integumentary: Reports systems reviewed and no addt'l complaints, except as docu mented Neurologic Neurologic: Reports systems reviewed and no addt'l complaints, except as documented Physical Exam Const alert, oriented x3 and no apparent distress HEENT Head and Scalp: normocephalic and atraumatic Neck full ROM and no lymphadenopathy Chest inspection of chest normal Resp normal respiratory effort GI GI Narrative: gravid, abdomen nontender, AGA Narrative: no blood seen in vault no pooling Manual OB Exam: dilated 0, effaced and station NST FHR Rate Baby A Baseline: 140 Variability:: Moderate Accelerations:: 15 x 15 Decelerations:: None NST Reactive:: Yes FHR Category:: Category I Uterine Activity:: none Assessment & Plan (1) Chronic hypertension affecting : COMMENT: uncontrolled- tried procardia and pressures went too low at home. starting labetalol 07/01/24 deliver 37-38 weeks (2) Not immune to rubella: COMMENT: MMR pp (3) Supervision of high-risk : COMMENT: PRR , CRISTINA 10/19/24, boy Eri (4) : QUALIFIERS: Weeks of gestation: 27 weeks Qualified Code(s): Z3A.27 - 27 weeks gestation of COMMENT: Horizon neg. NIPT low risk boy. afp declined. (5) Vaginal bleeding during : (6) 27 weeks gestation of : PLAN: Plan monitored and serial labs stable, celestone given Charges/Coding Multi Select Codes Visit Charges Office Visit/Consults: 12423 OV L3 Est 20min Urinary/Genital Urinary/Genital CPT Codes: 23866-93 non-stress test Interp
== END 2024-07-23 10:52 | disposition home or self-care (01) ==
LOC: WPOUT 01:40 → WP 01:40
PROVIDERS: PCP Family Medicine; Referring Provider Obstetrics & Gynecology; Visit Provider Obstetrics & Gynecology
DX: O16.2 Unspecified maternal hypertension, second trimester (principal); Z3A.27 27 weeks gestation of pregnancy; O20.9 Hemorrhage in early pregnancy, unspecified
CPT/HCPCS: 59025; 59050; 81002; 84112; 85025; 85384; 99221; G0378; J0702

== ENCOUNTER 2024-07-24 08:40 | Outpatient (CLI) | payer OTHER, SELFPAY ==
[2024-07-24 08:52] VITALS: BMI 37.2
[2024-07-24 09:04] VITALS: BP 128/72; PULSE 113
[2024-07-24] MEDS: Betamethasone/Betamethasone 30 MG/5 ML Vial 12 MG IM (09:10)
--- NOTE | 2024-07-24 09:13 | OB.TRI.PN ---
Progress Notes Date of Service: 07/24/24 Progress Note: at 27.4 weeks for IM injection of celestone 12mg for history of . Charges/Coding Procedures Urinary/Genital 52xxx-59xxx: No Charge Assessment & Plan (1) Chronic hypertension affecting : COMMENT: uncontrolled- tried procardia and pressures went too low at home. starting labetalol 07/01/24 deliver 37-38 weeks (2) Not immune to rubella: COMMENT: MMR pp (3) Supervision of high-risk : COMMENT: PRR , CRISTINA 10/19/24, boy Eri (4) : QUALIFIERS: Weeks of gestation: 27 weeks Qualified Code(s): Z3A.27 - 27 weeks gestation of COMMENT: Horizon neg. NIPT low risk boy. afp declined.
== END 2024-07-24 09:13 | disposition home or self-care (01) ==
LOC: WPOUT 08:46 → WP 08:46
PROVIDERS: PCP Family Medicine; Referring Provider Advanced Practice Midwife; Visit Provider Advanced Practice Midwife
DX: O16.2 Unspecified maternal hypertension, second trimester (principal); Z3A.27 27 weeks gestation of pregnancy
CPT/HCPCS: 96372; 99221; G0378; J0702

== ENCOUNTER → 2024-07-27 | Outpatient (CLI) | payer OTHER, SELFPAY ==
[2024-07-27 14:18] LABS: Absolute Lymphocyte Count 1.98 X10^3/uL (0.83-4.51); Absolute Neutrophil Count 10.8 X10^3/uL (2.0-7.7); Basophil# 0.04 X10^3/uL; Basophil% 0.3 % (0-1); Eosinophil# 0.06 X10^3/uL; Eosinophils% 0.4 % (0-5); Hemoglobin 12.3 g/dL (12.0-15.0); Lymphocyte # 1.98 X10^3/ul (0.83-4.51); Lymphocyte % 14.3 % (19-41); Mean Corp Hgb Conc 33.2 g/dL (32-36); Mean Corpuscular Volume 93.2 fL (81-99); Monocyte# 0.74 X10^3/uL; Monocyte% 5.4 % (0-10); NRBC Flagged by Analyzer 0 % (0-5); Neutrophil % 78.2 % (47-70); Platelet Count 227 K/mm3 (150-450); RBC Distribution Width CV 13.2 % (11.6-14.6); RBC Distribution Width SD 45.3 fl (35.1-43.9); Red Blood Count 3.97 M/mm3 (4.2-5.4); White Blood Count 13.8 K/mm3 (4.4-11.0)
[2024-07-27 16:14] LABS: Glucose Challenge Gest 1H 50g 93 mg/dL (70-140); Syphilis Antibodies Nonreactive (Nonreactive)
[2024-07-27 23:22] LABS: HIV Nonreactive (Nonreactive)
== END | disposition home or self-care (01) ==
PROVIDERS: PCP Family Medicine; Referring Provider Obstetrics & Gynecology; Visit Provider Obstetrics & Gynecology
DX: O09.90 Supervision of high risk pregnancy, unspecified, unspecified trimester (principal); Z3A.00 Weeks of gestation of pregnancy not specified
CPT/HCPCS: 36415; 82950; 85025; 86703; 86780

== ENCOUNTER 2024-08-16 23:45 | Emergency (ER) | payer OTHER, SELFPAY ==
[2024-08-16 23:46] VITALS: BP 108/78; PULSE 155; RESP 18; TEMP 36.6; O2SAT 93; BMI 36.7
--- NOTE | 2024-08-17 00:15 | ED.VIS.GI ---
HPI HPI - GI History of Present Illness Chief Complaint: GI Bleed Informant: patient and spouse/S.O. Nausea/Vomiting/Emesis GI Symptom: Positive for Nausea and Vomiting Onset: Today Severity: Moderate Diarrhea/Melena/Hematochezia GI Symptom: Negative for Diarrhea, Melena or Hematochezia Associated Symptoms Associated Symptoms: Negative for Dysuria, Frequency, Hematuria or Urgency Narrative Narrative: 23-year-old female G2, P0 Ab1 with that being a miscarriage. Currently 31 weeks . Due October 19, 2024. Currently seeing [place] [facility] group. Gilles had nausea vomiting. Threw up 3-4 times. On the next episode had some bright red blood. Small amount. No clots. No recent melena. No recent abdominal pain. Denies any dysuria. No fever. No history of upper GI bleed. No prior history of Lawanda-Browning tear or ulcer. She is on no blood thinners. The bright red blood occurred after throwing up multiple times. Prior similar symptoms: No Recent Illness/Hospitalization: Yes [facility] Medical History Seasonal allergies Fertility testing PCOS (polycystic ovarian syndrome) Infertility Infertility associated with anovulation Supervision of high-risk Wears glasses Heartburn Non-smoker Bartholin cyst Home Medications ?Medication ?Instructions ?Recorded ?Last Taken ?Type magnesium 200 mg tablet 400 mg PO QDAY 03/02/24 07/22/24 12:00 History multivitamin no.47-iron fum 27 1 cap PO DAILY 03/02/24 07/22/24 12:00 History mg-folate no.1 1 mg-dha 300 mg capsule (PNV-DHA) aspirin 81 mg tablet,delayed 81 mg PO QDAY 05/31/24 07/22/24 12:00 History release (Adult Aspirin Regimen) labetalol 100 mg tablet 100 mg PO BID #60 tabs 07/01/24 07/22/24 14:30 Rx ondansetron 4 mg disintegrating 4 mg PO Q6H PRN nausea and 08/17/24 Unknown Rx tablet vomiting #10 tabs pantoprazole 40 mg tablet,delayed 40 mg PO BID 7 days #14 tabs 08/17/24 Unknown Rx release (Protonix) Allergy/AdvReac Type Severity Reaction Status Date / Time No Known Allergies Allergy Verified 08/17/24 00:40 Family History Father Hypertension Grandmother Hypertension Surgical History S/P D&C (status post dilation and curettage) Status post laparoscopy (~02/26/22) Hx of tooth extraction Social History adopted: No household members: spouse current occupational status: unemployed current occupational exposures/hazards: No pets and animals: Yes (outside) pets and animals: dog(s) history of recent travel: Yes (- February ) out of state: Yes out of country: No sexually active: Yes Smoking Status: Never smoker alcohol intake: current alcohol intake frequency: holidays/special occasions only details: not while substance use type: does not use diet: gluten free and lactose free well-balanced diet: daily or most days caffeine: No eating out: rarely or never during the past year weight has: remained stable what type of physical activity do you participate in: walking frequency: 1-2 times per week duration: 15-30 minutes/day preethi/congregational: Yazidism seatbelt use: sometimes do you feel safe at home: Yes additional social history: - Eri: [employer] ROS ROS ED ROS Narrative Nausea, vomiting. Constitutional Constitutional ED: Denies chills or fever(s) ENT ENT ED: Denies ear pain Cardiovascular Cardiovascular: Denies chest pain Respiratory/Chest Respiratory/Chest: Denies cough or dyspnea Gastrointestinal Gastrointestinal: Reports nausea and vomiting; Denies diarrhea or melena Genitourinary Genitourinary ED: Denies dysuria or hematuria Musculoskeletal Musculoskeletal: Denies arthralgias or back pain Integumentary Denies abscess Neurologic Neurologic: Denies headache(s) Psychiatric Psychiatric: Denies anxiety Endocrine Endocrinology: Denies polydipsia Hematologic/Lymphatic Hematologic/Lymphatic: Denies easy bleeding or easy bruising Allergic/Immunologic Allergic/Immunologic ED: Denies mouth swelling, tongue swelling or urticaria EXAM Physical Exam Narrative Exam Narrative: -year-old female sitting upright in bed. Vital signs are stable and she is tachycardic 155 in triage currently her heart rates in the 120. H EENT exam pupils round react light. Motions are intact. Neck nontender no JVD. Lungs clear to auscultation bilaterally. Heart tachycardic 120 no murmur. Chest wall ribs nontender. Abdomen soft nondistended tended. Gravid uterus. Nontender. No hernia or mass. No obstruction. No peritoneal signs. Right upper and right lower quadrants are unremarkable. Moving all 4 extremities. Calves are nontender without edema or cords. Neurologically patient is awake alert no focal motor deficits. Const Vital Signs: 08/16/24 23:46 Temperature 98 F Temperature Source Temporal Pulse Rate 155 H Respiratory Rate 18 Blood Pressure 108/78 Blood Pressure Mean 88 Pulse Ox 93 Positive well nourished and well developed; Negative for cachectic, contractures or unkempt General Appearance ED: well developed and NAD; Negative for unkempt, cachectic, contractures or pallor Nutritional Appearance: Negative for cachectic HEENT Reports moist mucous membranes normocephalic and atraumatic; Negative for trauma or tenderness Eyes PERRL and EOMs intact bilaterally General Eye ED: Negative for pale conjunctiva or scleral icterus Neck no lymphadenopathy, supple and no JVD Resp normal respiratory effort and clear to auscultation bilaterally Cardio regular rate, regular rhythm, S1 normal heart sound, S2 normal heart sound and no murmurs Rate: tachycardic GI non-distended and no masses GI Narrative: Gravid nontender uterus. Auscultation: normoactive bowel sounds Palpation: soft; Negative for tender, guarding, hepatomegaly, splenomegaly, hernia, mass, pulsatile mass or rebound tenderness present Back/Spine no CVA tenderness General Back: Negative for CVA tenderness Cervical Spine: Negative for cervical spine tenderness Thoracic Spine / Upper Back: Negative for thoracic spinal tenderness Lumbar Spine / Lower Back: Negative for lumbar spinal tenderness Coccyx: Negative for other Extremity full ROM General Extremety ED: Negative for edema or tenderness General Extremity: Negative for edema Neuro CN's II-XII intact bilaterally and moves all extremities Sensorium / Orientation: alert, oriented to person, oriented to place and oriented to time; Negative for orientation impaired, confused, lethargic or stuporous Motor Exam: strength 5/5 throughout; Negative for general weakness or strength abnormal Psych mental status grossly normal and thought process normal Appearance: Negative for unkempt Attitude: No agitated Mood & Affect: Negative for depressed, anxious or tearful Skin no wounds General Skin Exam: Negative for jaundice or pallor Lesions: no lesions Rashes: no rashes Trauma: Negative for abrasion Nails: Negative for discolored MDM MDM MDM Narrative Medical decision making narrative: 23-year-old female currently 31 weeks . Nausea and vomiting tonight threw up about 4-5 times and then had small amount of hematemesis no clots. No melena. No history of GI bleed. No blood thinners. Sounds clinically like a Lawanda-Browning tear. Patient will be given Zofran. Liter normal saline. Screening labs. Differential includes gastritis, ulcer versus other etiologies. Patient doing well at 12:51 AM. She is walked to the bathroom without any difficulty. She be given some Zofran for nausea. Awaiting her UA. White count is elevated that I think is from vomiting or her . Repeat exam patient is doing well at 1:47 AM. Patient will be discharged home. Treated as a Lawanda-Browning tear. Patient is comfortable being discharged home. Zofran for nausea. Protonix for upper GI bleed. History & Record Review Discussion w/independent historian: Patient and Family Additional record(s) reviewed:: Prior inpatient record, Prior outpatient record, Prior ED visit and Prior labs Lab Data Attestation: I reviewed the patient's lab results. Lab results narrative: CBC shows a white count of 20,100. H&H of 14 and 42. Platelet count 277. heart tones 160. Electrolytes showed gap of 16. BUN 14 creatinine 0.67. Glucose 125. Liver enzymes unremarkable. Alk phos 135. Lipase normal at 27. Urinalysis is contaminated. There is urine ketones. No red cells. 10-25 white cells but 10-25 epithelial cells. No symptoms. Not treated. Labs: Laboratory Results - last 24 hr 08/17/24 08/17/24 00:17 00:50 WBC 20.1 H RBC 4.74 Hgb 14.5 Hct 42.7 MCV 90.1 MCH 30.6 MCHC 34.0 RDW Std Deviation 42.1 RDW Coeff of [place] 12.8 Plt Count 277 MPV 9.8 Immature Gran % (Auto) 1.200 H Neut % (Auto) 88.7 H Lymph % (Auto) 4.0 L [place] % (Auto) 5.6 Eos % (Auto) 0.2 Baso % (Auto) 0.3 Absolute Neuts (auto) 17.8 H Absolute Lymphs (auto) 0.80 L Nucleated RBC % 0 Sodium 137 Potassium 4.0 Chloride 104 Carbon Dioxide 17.0 L Anion Gap 16 H BUN 14 Creatinine 0.67 L Estim Creat Clear Calc 171.96 Est GFR (MDRD) Non-Af 124 BUN/Creatinine Ratio 20.2 H Glucose 125 H Calcium 10.0 Total Bilirubin 0.78 AST 19 ALT 23 Alkaline Phosphatase 135 H Total Protein 8.4 Albumin 4.3 Globulin 4.2 Albumin/Globulin Ratio 1.0 Lipase 27 Urine Color Yellow Urine Clarity Clear Urine pH 6.0 Ur Specific [place] 1.020 Urine Protein 100 H Urine Glucose (UA) Normal Urine Ketones 150 A* Urine Occult Blood 10 H Urine Nitrite Negative Urine Bilirubin Negative Urine Urobilinogen Normal Ur Leukocyte Esterase 25 H Urine RBC 0 SEEN Urine WBC 10-25 SEEN Ur Squamous Epith Cells 10-25 SEEN Ur Transition Epith Cell 0-5 SEEN Urine Bacteria 2+ Urine Mucus 2+ Discharge Plan Triage Chief Complaint: GI Bleed ED Provider: Carlton Michele Dx/Rx/DC Orders Clinical Impression: Acute upper gastrointestinal bleeding, Lawanda-Browning tear, Third trimester , Nausea & vomiting Instructions: Lawanda-Browning Tear, ED Upper GI Bleeding (Stable) Prescriptions: New pantoprazole [Protonix] 40 mg tablet,delayed release (DR/EC) 40 mg PO BID 7 Days Qty: 14 0RF ondansetron 4 mg tablet,disintegrating 4 mg PO Q6H PRN (Reason: nausea and vomiting) Qty: 10 0RF No Action PNV-DHA 27 mg iron-1 mg -300 mg capsule 1 cap PO DAILY magnesium 200 mg tablet 400 mg PO QDAY aspirin [Adult Aspirin Regimen] 81 mg tablet,delayed release (DR/EC) 81 mg PO QDAY labetalol 100 mg tablet 100 mg PO BID Qty: 60 6RF Primary Care Provider: Samara Lazaro Referrals: Elsy Sanabria MD [Med Staff - Active Staff] - As Needed Samara Lazaro PA-C [Primary Care Provider] - 3-5 Days if not improving Activity Restrictions/Additional Instructions: Plenty of fluids and rest. Zofran as needed for nausea. Most likely you have a Lawanda-Browning tear. That is when he threw up multiple times in a row and you get a small tear where your esophagus meets your stomach. These usually heal on their own. Protonix daily for the next 2 weeks. Avoid aspirin and Motrin. Return if heavier bleeding or you start noticing black stool. Follow-up with your [facility] as needed. Print Language: Omani Disposition Disposition: Home, Self Care
[2024-08-17] MEDS: 0.9% Normal Saline (1000mL) 1,000 ML 999 ML IV (00:19)
[2024-08-17] MEDS: Ondansetron 4 MG/2 ML Vial IV ×2 (00:19→00:59)
[2024-08-17] MEDS: Pantoprazole Sodium 40 MG in 0.9% Normal Saline (100mL MB+) 100 ML 330 MG IV (00:20)
[2024-08-17 00:24] LABS: Absolute Neutrophil Count 17.8 X10^3/uL (2.0-7.7); Basophil# 0.06 X10^3/uL; Basophil% 0.3 % (0-1); Eosinophil# 0.04 X10^3/uL; Eosinophils% 0.2 % (0-5); Hematocrit 42.7 % (37-47); Hemoglobin 14.5 g/dL (12.0-15.0); Mean Corpuscular Hgb 30.6 pg (27.0-32.0); Mean Corpuscular Volume 90.1 fL (81-99); Mean Platelet Vol. 9.8 fl (6.2-12.0); Monocyte# 1.13 X10^3/uL; Monocyte% 5.6 % (0-10); NRBC Flagged by Analyzer 0 % (0-5); Neutrophil # 17.79 X10^3/uL (2.7-7.7); Neutrophil % 88.7 % (47-70); Platelet Count 277 K/mm3 (150-450); RBC Distribution Width CV 12.8 % (11.6-14.6); RBC Distribution Width SD 42.1 fl (35.1-43.9); Red Blood Count 4.74 M/mm3 (4.2-5.4); White Blood Count 20.1 K/mm3 (4.4-11.0)
[2024-08-17 00:45] LABS: AST(SGOT) 19 U/L (<=31); Alanine Aminotransfer ALT/SGPT 23 U/L (<=34); Albumin, Serum 4.3 g/dL (3.5-5.0); Alkaline Phosphatase 135 U/L (35-104); Anion Gap 16 (5-15); BUN 14 mg/dL (4-19); BUN/Creat Ratio 20.2 RATIO (10-20); Chloride 104 mmol/L (98-108); Creatinine, Serum 0.67 mg/dL (0.70-1.20); EST Glomerular Filtration Rate 124 (>60); Estimated Creatinine Clearance 171.96 ml/min (50-250); Globulin 4.2 g/dL (2.2-4.2); Glucose 125 mg/dL (70-99); Lipase 27 U/L (13-75); Protein, Total 8.4 g/dL (5.9-8.4); Sodium Level 137 mmol/L (133-145); Total Bilirubin 0.78 mg/dL (0.00-1.30)
[2024-08-17 00:58] LABS: Red Blood Cells-Urine 0 SEEN /hpf (0-5)
[2024-08-17 01:16] LABS: Color, Urine Yellow (Yellow); Glucose, Dipstick Normal (Normal); Leukocyte Esterase-Dipstick 25 /ul (Negative); Nitrite-Dipstick Negative (Negative); Occult Blood-Urine 10 /ul (Negative); Protein-Dipstick 100 mg/dl (Negative); Urine Bilirubin Dipstick Negative (Negative); Urine Clarity Clear (Clear); Urine Urobilinogen Normal (Normal)
[2024-08-17 01:21] LABS: Ketone-Dipstick 150 mg/dl (Negative)
[2024-08-17 01:32] LABS: Squamous Epithelial Cells - UA 10-25 SEEN /hpf (5-10); Transitional Epithelial - Ur 0-5 SEEN /hpf (0-5); White Blood Cells 10-25 SEEN /hpf (0-5)
[2024-08-17 01:33] LABS: Bacteria 2+ /hpf (None Seen); Mucous, Urine 2+ /hpf (<or=2+)
[2024-08-17 01:49] VITALS: BP 122/80; PULSE 111; RESP 22; TEMP 36.8; O2SAT 99
== END 2024-08-17 01:58 | disposition home or self-care (01) ==
PROVIDERS: Emergency Provider Emergency Medicine; PCP Family Medicine; Visit Provider Emergency Medicine
DX: O99.613 Diseases of the digestive system complicating pregnancy, third trimester (principal); Z3A.31 31 weeks gestation of pregnancy; K22.6 Gastro-esophageal laceration-hemorrhage syndrome; O21.9 Vomiting of pregnancy, unspecified; O99.283 Endocrine, nutritional and metabolic diseases complicating pregnancy, third trimester; E28.2 Polycystic ovarian syndrome
CPT/HCPCS: 80053; 81001; 83690; 85025; 96361; 96374; 96376; 99283; A4216; J2405

== ENCOUNTER 2024-08-24 11:00 | Outpatient (CLI) | payer OTHER, SELFPAY ==
[2024-08-24 11:15] VITALS: BP 112/72; PULSE 104; PULSE 97; RESP 16; TEMP 37.2; O2SAT 96
--- NOTE | 2024-08-24 11:15 | US_ITS ---
PROCEDURE: BIOPHYSICAL PROF W/O NON STRES 08/24/2024 REASON FOR EXAM: EXTENDED MONITORING TECHNIQUE: Routine grayscale imaging was performed and observations documented per protocol. COMPARISON: Ultrasound dated 07/22/2024. FINDINGS: Breathing Movements: 2 Body Movements: 2 Tone: 2 Amniotic Fluid Volume: 2 TOTAL SCORE: 8 Amniotic Fluid Index:13.7 Largest Fluid Pocket: 5.6 cm. Placenta: Posterior Heart Rate: 152 bpm. Position: Cephalic US/Biophysical Prof W/O Non Stres IMPRESSION: Single viable intrauterine fetus in a cephalic presentation. heart rate of 152 beats per minute. Normal amniotic fluid. Unremarkable biophysical profile. [id number]
[2024-08-24 11:17] VITALS: PULSE 97; O2SAT 96
[2024-08-24 11:33] VITALS: BMI 37.2
--- NOTE | 2024-08-24 12:53 | OB.TRI.PN_ITS ---
Progress Notes Date of Service: 08/24/24 Progress Note: Patient presents for triage evaluation secondary to nonreactive nst FHT: 140 Moderate variability reactive no decelerations category I tracing [place]: no rgualr Contractions Assessment and plan: non reactive nst 32 weeks Reactive NST, reassuring maternal and status patient discharged to home to follow-up asscheduled. See problem list details for additional plan information. Charges/Coding Procedures Urinary/Genital 52xxx-59xxx: 90080-77 non-stress test Interp Assessment & Plan (1) Chronic hypertension affecting : COMMENT: uncontrolled- tried procardia and pressures went too low at home. starting labetalol 07/01/24 deliver 37-38 weeks NSTs at 32 weeks and growth US at 32 and 36 weeks (2) Vaginal bleeding during : (3) Not immune to rubella: COMMENT: MMR pp (4) Supervision of high-risk : QUALIFIERS: Trimester: third trimester Qualified Code(s): O09.93 - Supervision of high risk , unspecified, third trimester COMMENT: PRR , CRISTINA 10/19/24, boy Eri (5) : QUALIFIERS: Weeks of gestation: 32 weeks Qualified Code(s): Z3A.32 - 32 weeks gestation of COMMENT: Horizon neg. NIPT low risk boy. afp declined.
[2024-08-24 16:18] VITALS: BP 140/86; PULSE 92
== END 2024-08-24 13:05 | disposition home or self-care (01) ==
LOC: WPOUT 11:06 → WP 11:07
PROVIDERS: PCP Family Medicine; Referring Provider Obstetrics & Gynecology; Visit Provider Obstetrics & Gynecology
DX: O10.013 Pre-existing essential hypertension complicating pregnancy, third trimester (principal); Z3A.32 32 weeks gestation of pregnancy; O46.93 Antepartum hemorrhage, unspecified, third trimester
CPT/HCPCS: 59025; 59050; 76819; 99221; G0378

== ENCOUNTER → 2024-08-25 | Outpatient (CLI) | payer OTHER, SELFPAY ==
--- NOTE | 2024-08-25 12:18 | US_ITS ---
PROCEDURE: OB LIMITED WITH BIOMETRICS 08/25/2024 REASON FOR EXAM: 32 WEEK GROWTH AND BPP CHTN TECHNIQUE: Transabdominal OB limited ultrasound with biometrics COMPARISON: 07/22/2024 FINDINGS Transabdominal imaging. Single live intrauterine with a cephalic presentation. cardiac activity 142 beats per minute. Cervical length 2.9 cm. Cervical os is not well seen. MIKA 12.2 cm, maximum vertical pocket 4.3 cm Posterior grade 1 placenta appears within limits, not low-lying. DIMENSIONS: Biparietal Diameter: 8.1 cm/32 weeks 5 days, 57.2% Head Circumference: 30.8 cm/34 weeks 3 days, 73.6% Abdominal Circumference: 27.81 cm/31 weeks 6 days, 40.4% Femur Length: 5.97 cm/31 weeks 1 day, 13.1% FL/AC 21.5%, FL/BPD 73.4%, FL/HC 19.4%, CI 77.2%, HC/AC 1.1 ESTIMATED WEIGHT: 1849 g +/-277 g ESTIMATED WEIGHT PERCENTILE (24+ weeks): 30.5 Estimated age by current ultrasound 32 weeks 5 days, CRISTINA 10/15/2024 By prior ultrasound 32 weeks 0 days, CRISTINA 10/20/2024 age by LMP 32 weeks 1 day, CRISTINA 10/19/2024 US/OB Limited With Biometrics IMPRESSION: Single live intrauterine with biometrics as above. Reading Location: [id number]
== END | disposition home or self-care (01) ==
LOC: US 12:16
PROVIDERS: PCP Family Medicine; Referring Provider Advanced Practice Midwife; Visit Provider Advanced Practice Midwife
DX: O10.013 Pre-existing essential hypertension complicating pregnancy, third trimester (principal); Z3A.32 32 weeks gestation of pregnancy
CPT/HCPCS: 76816

== ENCOUNTER → 2024-09-07 | Outpatient (CLI) | payer OTHER, SELFPAY ==
[2024-09-07 12:02] LABS: Absolute Lymphocyte Count 1.57 X10^3/uL (0.83-4.51); Absolute Neutrophil Count 8.3 X10^3/uL (2.0-7.7); Basophil# 0.03 X10^3/uL; Basophil% 0.3 % (0-1); Eosinophil# 0.05 X10^3/uL; Eosinophils% 0.5 % (0-5); Hematocrit 35.7 % (37-47); Hemoglobin 12.3 g/dL (12.0-15.0); Lymphocyte # 1.57 X10^3/ul (0.83-4.51); Lymphocyte % 14.8 % (19-41); Mean Corp Hgb Conc 34.5 g/dL (32-36); Mean Corpuscular Hgb 30.6 pg (27.0-32.0); Mean Corpuscular Volume 88.8 fL (81-99); Monocyte# 0.57 X10^3/uL; Monocyte% 5.4 % (0-10); NRBC Flagged by Analyzer 0 % (0-5); Neutrophil # 8.29 X10^3/uL (2.7-7.7); Neutrophil % 77.8 % (47-70); Platelet Count 234 K/mm3 (150-450); RBC Distribution Width CV 13.1 % (11.6-14.6); RBC Distribution Width SD 42.3 fl (35.1-43.9); Red Blood Count 4.02 M/mm3 (4.2-5.4); White Blood Count 10.6 K/mm3 (4.4-11.0)
[2024-09-07 12:19] LABS: Protein, Urine (Random) 27.7 mg/dL (0.0-12.0); Protein:Creat Ratio 186 mg/g CRE (0-200)
[2024-09-07 12:24] LABS: AST(SGOT) 20 U/L (<=31); Alanine Aminotransfer ALT/SGPT 19 U/L (<=34); Albumin, Serum 3.5 g/dL (3.5-5.0); Alkaline Phosphatase 125 U/L (35-104); Anion Gap 12 (5-15); BUN 8 mg/dL (4-19); BUN/Creat Ratio 14.3 RATIO (10-20); Calcium,Total 9.8 mg/dL (7.6-11.0); Carbon Dioxide 19.4 mmol/L (21.0-32.0); Chloride 108 mmol/L (98-108); Creatinine, Serum 0.53 mg/dL (0.70-1.20); EST Glomerular Filtration Rate 131 (>60); Globulin 3.5 g/dL (2.2-4.2); Glucose 116 mg/dL (70-99); Potassium 3.8 mmol/L (3.3-5.1); Sodium Level 139 mmol/L (133-145)
== END | disposition home or self-care (01) ==
LOC: BWCLAB 10:46
PROVIDERS: PCP Family Medicine; Referring Provider Nurse Practitioner Women's Health; Visit Provider Nurse Practitioner Women's Health
DX: O10.919 Unspecified pre-existing hypertension complicating pregnancy, unspecified trimester (principal); Z3A.00 Weeks of gestation of pregnancy not specified
CPT/HCPCS: 36415; 80053; 82570; 84156; 85025

== ENCOUNTER 2024-09-17 14:10 | Outpatient (CLI) | payer OTHER, SELFPAY ==
[2024-09-17 14:24] VITALS: RESP 13; TEMP 36.8; O2SAT 98
[2024-09-17 14:25] VITALS: BP 130/78; PULSE 115; O2SAT 97
--- NOTE | 2024-09-17 14:29 | US_ITS ---
EXAM: BIOPHYSICAL PROF W/O NON STRES (USBIOWO) 09/17/2024 CLINICAL HISTORY: NONREACTIVE NST COMPARISON: 08/25/2024 TECHNIQUE: A limited transabdominal obstetrical ultrasound was performed to determine biophysical profile score. FINDINGS: Gravid uterus with a single fetus. Breathing movement: 2 Gross Body movement: 2 Tone: 2 Qualitative Amniotic Fluid: 2 Amniotic Fluid Index: 14.8 (normal 5-25), deepest vertical pocket 4.8 (normal 2-8). presentation: Cephalic. heart rate: Present, 150 bpm. Placenta: Posterior, not low lying, without definite or visualized previa. Suspect increased thickness up to 6.5 cm although this could be technical and related to oblique planes of imaging. US/Biophysical Prof W/O Non Stres IMPRESSION: 1. Biophysical Profile Score of 8 out of a possible 8. 2. Possible placentomegaly which is nonspecific and can be seen in the setting of maternal diabetes/anemia anemia or various conditions amongst other etiologies. Correlate with clinical evaluation and recommend clinical follow-up. 3. Additional description as above. Reading Location: [id number]
[2024-09-17 14:39] VITALS: BMI 38.0
--- NOTE | 2024-09-17 15:40 | OB.TRI.PN ---
Progress Notes Date of Service: 09/17/24 Progress Note: Patient presents for triage evaluation secondary to nonreactive NST at 35 weeks. FHT: 145 Moderate variability reactive no decelerations category I tracing [place]: rare Contractions Assessment and plan: BPP 8/8, Reactive NST, reassuring maternal and status patient discharged to home to follow-up at next appointment. See problem list details for additional plan information. Charges/Coding Multi Select Codes Urinary/Genital Urinary/Genital CPT Codes: 65881-97 non-stress test Interp Assessment & Plan (1) Vaginal bleeding during : (2) Chronic hypertension affecting : COMMENT: uncontrolled- tried procardia and pressures went too low at home. starting labetalol 07/01/24/controlled deliver 37-38 weeks NSTs at 32 weeks and growth US at 32(nl) and 36 weeks Pre E labs (3) Not immune to rubella: COMMENT: MMR pp (4) Supervision of high-risk : QUALIFIERS: Trimester: third trimester Qualified Code(s): O09.93 - Supervision of high risk , unspecified, third trimester COMMENT: PRR , CRISTINA 10/19/24, boy Eri (5) : QUALIFIERS: Weeks of gestation: 35 weeks Qualified Code(s): Z3A.35 - 35 weeks gestation of COMMENT: Horizon neg. NIPT low risk boy. afp declined. (6) Non-reactive NST (non-stress test): COMMENT: BPP 8/8 NST reassuring on WP- D/C home
== END 2024-09-17 15:50 | disposition home or self-care (01) ==
LOC: WPOUT 14:15 → WP 14:16
PROVIDERS: PCP Family Medicine; Referring Provider Advanced Practice Midwife; Visit Provider Advanced Practice Midwife
DX: O09.93 Supervision of high risk pregnancy, unspecified, third trimester (principal); O10.913 Unspecified pre-existing hypertension complicating pregnancy, third trimester; Z79.899 Other long term (current) drug therapy; Z3A.35 35 weeks gestation of pregnancy
CPT/HCPCS: 59025; 59050; 76819; 99221; G0378

== ENCOUNTER → 2024-09-21 | Outpatient (CLI) | payer OTHER, SELFPAY | END | disposition home or self-care (01) | LOC: LABSPEC 11:29 | PROVIDERS: PCP Family Medicine; Referring Provider Advanced Practice Midwife; Visit Provider Advanced Practice Midwife | DX: O09.93 Supervision of high risk pregnancy, unspecified, third trimester (principal); Z3A.36 36 weeks gestation of pregnancy | CPT/HCPCS: 87077; 87081; 87186 ==

== ENCOUNTER → 2024-09-22 | Outpatient (CLI) | payer SELFPAY, OTHER ==
--- NOTE | 2024-09-22 12:57 | US_ITS ---
PROCEDURE: OB LIMITED WITH BIOMETRICS 09/22/2024 REASON FOR EXAM: 36 WEEK GROWTH AND BPP TECHNIQUE: High resolution obstetric ultrasound performed using a 2D transducer. Standard views obtained, including biometry, FINDINGS Transabdominal imaging Single live intrauterine cardiac activity 150 beats per minute. Presentation is cephalic. Cervix not visualized. MIKA 19.3 cm, maximum vertical pocket 7.1 cm DIMENSIONS: Biparietal Diameter: 9.0 cm/36 weeks 4 days, 72% Head Circumference: 32.1 cm/36 weeks 2 days, 23% Abdominal Circumference: 32.1 cm/36 weeks 0 day, 58% Femur Length: 6.9 cm/35 weeks 3 days, 28% FL/AC 22%, FL/BPD 76%, FL/HC 22%, CI 81%, HC/AC 1.0 ESTIMATED WEIGHT: 2851 g +/-428 g ESTIMATED WEIGHT PERCENTILE (24+ weeks): 51% Estimated age by current ultrasound 36 weeks 0 days, CRISTINA 10/20/2024 age by prior ultrasound 36 weeks 5 days, CRISTINA 10/15/2024 age by LMP 36 weeks 1 day, CRISTINA 10/19/2024 US/OB Limited With Biometrics IMPRESSION: Single live intrauterine with biometry as above. Reading Location: [id number]
== END | disposition home or self-care (01) ==
LOC: US 12:56
PROVIDERS: PCP Family Medicine; Referring Provider Advanced Practice Midwife; Visit Provider Advanced Practice Midwife
DX: O10.013 Pre-existing essential hypertension complicating pregnancy, third trimester (principal); Z3A.36 36 weeks gestation of pregnancy
CPT/HCPCS: 76816

== ENCOUNTER 2024-09-24 10:58 | Outpatient (CLI) | payer OTHER, SELFPAY ==
[2024-09-24] VITALS (11 sets, daily range): BP systolic 116–142; BP diastolic 68–86; PULSE 99–122; TEMP 36.5; O2SAT 96–98; BMI 38.2
[2024-09-24 11:45] LABS: Hematocrit 35.5 % (37-47); Hemoglobin 12.1 g/dL (12.0-15.0); Mean Corp Hgb Conc 34.1 g/dL (32-36); Mean Corpuscular Hgb 30.3 pg (27.0-32.0); Mean Platelet Vol. 10.1 fl (6.2-12.0); Platelet Count 251 K/mm3 (150-450); RBC Distribution Width CV 13.3 % (11.6-14.6); RBC Distribution Width SD 43.1 fl (35.1-43.9); Red Blood Count 3.99 M/mm3 (4.2-5.4); White Blood Count 10.9 K/mm3 (4.4-11.0)
[2024-09-24 12:55] LABS: Protein, Urine (Random) 22.2 mg/dL (0.0-12.0); Protein:Creat Ratio 163 mg/g CRE (0-200)
--- NOTE | 2024-09-24 13:16 | OB.TRI.HP_ITS ---
HPI - General HPI Narrative STARLA LAM, is a 23 F who presents to L&D from the office due to some elevated bp's and a non-reactive nst. She denies headaches, visual changes or epigastric pain. her bp on arrival here was a systolic of 117. THe rest of the bp's have been 130's/ 80's. She had one bp that was 140/90 and has IOL set up friday. Maternal Data Information CRISTINA Calculator Estimated Delivery Date Method Current WG Current Estimate 10/19/24 LMP (Certain) 36w 3d Other Estimates 10/15/24 Ultrasound #1 37w 0d PFSH PFSH Medical History Seasonal allergies Fertility testing PCOS (polycystic ovarian syndrome) Infertility Infertility associated with anovulation Supervision of high-risk Wears glasses Heartburn Non-smoker Bartholin cyst Home Medications ?Medication ?Instructions ?Recorded ?Last Taken ?Type magnesium 200 mg tablet 400 mg PO QDAY 03/02/24 0401/10 08:00 History multivitamin no.47-iron fum 27 1 cap PO DAILY pregnanc y 03/02/24 08/24/24 08:00 History mg-folate no.1 1 mg-dha 300 mg capsule (PNV-DHA) aspirin 81 mg tablet,delayed 81 mg PO QDAY 05/31/24 08:00 History release (Adult Aspirin Regimen) labetalol 100 mg tablet 100 mg PO BID #60 tabs 07/0108/24/24 08:00 Rx ondansetron 4 mg disintegrating 4 mg PO Q6H PRN nausea and 08/17/24 Unknown Rx tablet vomiting #10 tabs pantoprazole 40 mg tablet,delayed 40 mg PO BID 7 days #14 tabs 08/17/24 Unknown Rx release (Protonix) Allergy/AdvReac Type Severity Reaction Status Date / Time No Known Allergies Allergy Verified 09/24/24 10:26 Family History Father Hypertension Grandmother Hypertension Surgical History S/P D&C (status post dilation and curettage) Status post laparoscopy (~02/26/22) Hx of tooth extraction Social History adopted: No household members: spouse current occupational status: unemployed current occupational exposures/hazards: No pets and animals: Yes (outside) pets and animals: dog(s) history of recent travel: Yes (- February ) out of state: Yes out of country: No sexually active: Yes Smoking Status: Never smoker alcohol intake: current alcohol intake frequency: holidays/special occasions only details: not while substance use type: does not use diet: gluten free and lactose free well-balanced diet: daily or most days caffeine: No eating out: rarely or never during the past year weight has: remained stable what type of physical activity do you participate in: walking frequency: 1-2 times per week duration: 15-30 minutes/day preethi/worship: Ep[employer] seatbelt use: sometimes do you feel safe at home: Yes additional social history: - 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 Date Name GA/Weeks Outcome Route Bth Weight Gen Labor Lgth Anesthesia Del [facility] Provider FOB 11/26/23 D+C 6 spontaneous Visit Details Expected Delivery Route/Plan Labor Preferences- CB/BF classes: no labor support person: Eri labor intervention preferences: [] pain management options preferred: epidural cut cord/dad catch: cord : yes PP control planned: discussed discussed possible routes of delivery and associated risks: [] special requests: [] Plans Covid status: [] Flu vaccine: declined Tdap vaccine: [] Rhogam: NA LARC form signed: yes Problem list reviewed and updated with the most current plan of care details and appropriate orders placed. Relevant counseling for the gestational age provided. Continue routine care and follow up unless otherwise noted in visit notes/problem list details OB Flowsheet Initial Weight: 236 lb Date -?-?-?-?-?-?-?-?-?-?-?-?- EGA Weight BP Urine Prot -?-?-?-?-?-?-?-?-?-?-?-?- Glucose FHR FuHt Pres Dilation -?-?-?-?-?-?-?-?-?-?-?-?- Effaced St Visit Note 03/08/24 -?-?-?-?-?-?-?-?-?-?-?-?- 7w 6d 236 lb (+0 oz) 145/85 -?-?-?-?-?-?-?-?-?-?-?-?- 160 -?-?-?-?-?-?-?-?-?-?-?-?- KW- CRL cons wit h dates. accepts NIPT. return to office in 2 weeks for FHT, BP check, and labs. 03/25/24 -?-?-?-?-?-?-?-?-?-?-?-?- 10w 2d 238 lb (+2 lb) 137/96 140/86 Negative -?-?-?-?-?-?-?-?-?-?-?-?- Negative 171 -?-?-?-?-?-?-?-?-?-?-?-?- KW- doing well. CRL still cons with dates. Labs today. ASA recommended 04/06/24 -?-?-?-?-?-?-?-?-?-?-?-?- 12w 0d 240 lb 6 oz (+4 lb 6 oz) 146/83 Negative -?-?-?-?-?-?-?-?-?-?-?-?- Negative 154 -?-?-?-?-?-?-?-?-?-?-?-?- JV- no cramping or spotting. no REESE today. still nauseated. rpt NIPT today. JV- no cramping or spotting. no REESE today. still nauseated. rpt NIPT today. Still having high blood pressure. baseline [place]:Cr ordered. starting procardia. mfm ultrasound ordered. 05/07/24 -?-?-?-?-?-?-?-?-?-?-?-?- 16w 3d 244 lb 8 oz (+8 lb 8 oz) 151/83 134/86 Negative -?-?-?-?-?-?-?-?-?-?-?-?- Negative 150 -?-?-?-?-?-?-?-?-?-?-?-?- SM- no vb lof cr amping bps WNL 05/31/24 -?-?-?-?-?-?-?-?-?-?-?-?- 19w 6d 250 lb (+14 lb) 149/89 123/85 Negative -?-?-?-?-?-?-?-?-?-?-?-?- Negative 145 20 -?-?-?-?-?-?-?-?-?-?-?-?- KW- no vb/lof/ct x. good fm. had reviewed BPs from home at last visit and decided she did not need Procardia. Home bps are 120/70. KW- no vb/lof/ctx. good fm. had reviewed BPs from home at last visit and decided she did not need Procardia. Home bps are 120/70. Procardia was giving pt a headache when she took it. additional US views scheduled with [facility] 07/01/24 -?-?-?-?-?-?-?-?-?-?-?-?- 24w 2d 254 lb 4 oz (+18 lb 4 oz) 142/94 Negative -?-?-?-?-?-?-?-?-?-?-?-?- Negative 150 -?-?-?-?-?-?-?-?-?-?-?-?- JV- still has el evated pressures here and a heart rate of 125. states heart races at home. will try a beta oralai. RTO in 1 week for bp check 07/08/24 -?-?-?-?-?-?-?-?-?-?-?-?- 25w 2d 256 lb (+20 lb) 148/84 Negative -?-?-?-?-?-?-?-?-?-?-?-?- Negative -?-?-?-?-?-?-?-?-?-?-?-?- SM reviewed with patient needs to take full amount of medication- she wasn't because it made her scalp tingle, she states bps nl at home, but mita george full amount, fu in office next week for bp check 07/22/24 -?-?-?-?-?-?-?-?-?-?-?-?- 27w 2d 254 lb (+18 lb) 126/86 Negative -?-?-?-?-?-?-?-?--?-?-?-?- Negative 155 0 -?-?-?-?-?-?-?-?-?-?-?-?- JV- pt presents with the complaint of seeing blood tinged discharge. she states that she always has a yellow discharge. on exam there is pooling of fluid suspicious for ROM. sending to L&D now for us and sending ROM plus now. 07/27/24 -?-?-?-?-?-?-?-?-?-?-?-?- 28w 0d 252 lb 8 oz (+16 lb 8 oz) 130/80 Negative -?-?-?-?-?-?-?-?-?-?-?-?- Negative 159 28 -?-?-?-?-?-?-?-?-?-?-?-?- MH-No VB since i n WP 07/23. No cramping. Good FM. 28 wk labs. Larc 08/10/24 -?-?-?-?-?-?-?-?-?-?-?-?- 30w 0d 255 lb (+19 lb) 122/87 Negative -?-?-?-?-?-?-?-?-?-?-?-?- Negative 145 30 -?-?-?-?-?-?-?-?-?-?-?-?- KW- no vb/lof/ct x. good fm. Needs US and NSTs scheduled. discussed timing of those and delivery at 37 weeks 08/24/24 -?-?-?-?-?-?-?-?-?-?-?-?- 32w 0d 254 lb 2 oz (+18 lb 2 oz) 134/86 Negative -?-?-?-?-?-?-?-?-?-?-?-?- Negative 140 32 -?-?-?-?-?-?-?-?-?-?-?-?- SM- no vb lof go od fm no regular ctx, SM- no vb lof good fm no reg ular ctx, to l and d for variable 08/27/24 -?-?-?-?-?-?-?-?-?-?-?-?- 32w 3d 256 lb 2 oz (+20 lb 2 oz) 137/88 Negative -?-?-?-?-?-?-?-?-?-?-?-?- Negative 135 -?-?-?-?-?-?-?-?-?-?-?-?- LC- nst only. re active. no concerns. 08/31/24 -?-?-?-?-?-?-?-?-?-?-?-?- 33w 0d 256 lb (+20 lb) 128/84 Negative -?-?-?-?-?-?-?-?-?-?-?-?- Negative 150 -?-?-?-?-?-?-?-?-?-?-?-?- -No VB, LOF. G ood FM. Reactive NST. 09/02/24 -?-?-?-?-?-?-?-?-?-?-?-?- 33w 2d 256 lb (+20 lb) 129/85 Negative -?-?-?-?-?-?-?-?-?-?-?-?- Negative 145 -?-?-?-?-?-?-?-?-?-?-?-?- KW- NST only-britany ctive 09/07/24 -?-?--?-?-?-?-?-?-?-?-?-?- 34w 0d 258 lb 4 oz (+22 lb 4 oz) 118/77 Trace -?-?-?-?-?-?-?-?-?-?-?-?- Negative 140 33 -?-?-?-?-?-?-?-?-?-?-?-?- MH-No VB. Good F M. Denies headache, vision changes. Labs today. reactive NST 09/10/24 -?-?-?-?-?-?-?-?-?-?-?-?- 34w 3d 258 lb 4 oz (+22 lb 4 oz) 134/84 Negative -?-?-?-?-?-?-?-?-?-?-?-?- Negative 130 -?-?-?-?-?-?-?-?-?-?-?-?- JV- NST only tod ay with reactive nst. no complaint. plan 37 week IOL. 09/14/24 -?-?-?-?-?-?-?-?-?-?-?-?- 35w 0d 260 lb (+24 lb) 138/82 Negative -?-?-?-?-?-?-?-?-?-?-?-?- Negative 140 34 -?-?-?-?-?-?-?-?-?-?-?-?- MH-No VB, LOF. G ood FM. Reactive NST 09/17/24 -?-?-?-?-?-?-?-?-?-?-?-?- 35w 3d 259 lb 4 oz (+23 lb 4 oz) 137/85 Negative -?-?-?-?-?-?-?-?-?-?-?-?- Negative 145 -?-?-?-?-?-?-?-?-?-?-?-?- KW- NST not reac tive. to WP for BPP 09/21/24 -?-?-?-?-?-?-?-?-?-?-?-?- 36w 0d 260 lb 4 oz (+24 lb 4 oz) 121/83 Negative -?-?-?-?-?-?-?-?-?-?-?-?- Negative 140 0 -?--?-?-?-?-?-?-?-?-?-?-?- -3 KW- NST reactive. 37 week IOL set up next week GBS today 09/24/24 -?-?-?-?-?-?-?-?-?-?-?-?- 36w 3d 261 lb 6 oz (+25 lb 6 oz) 145/78 140/82 Negative -?-?-?-?-?-?-?-?-?-?-?-?- Negative 140 -?-?-?-?-?-?-?-?-?-?-?-?- JV- sending to L &D for further work up .strip not reative and an unconnected decel to 40 was possible. pt had headache this am that is now gone. ROS Constitutional Constitutional: Reports systems reviewed and no addt'l complaints, except as documented Gastrointestinal Gastrointestinal: Denies bloating, constipation, cramping, diarrhea, nausea or vomiting Genitourinary Genitourinary: Reports other Details: Denies vaginal odor, vaginal bleeding, or vaginal discharge ; Denies difficulty urinating or flank pain NST FHR Rate Baby A Baseline: 140 Variability:: Moderate Accelerations:: 15 x 15 Decelerations:: None NST Reactive:: Yes FHR Category:: Category I Assessment & Plan (1) Positive GBS test: COMMENT: treat in labor (2) Non-reactive NST (non-stress test): COMMENT: BPP 12/24 NST reassuring on WP- D/C home (3) Vaginal bleeding during : (4) Chronic hypertension affecting : COMMENT: uncontrolled- tried procardia and pressures went too low at home. starting labetalol 07/01/24/controlled deliver 37-38 weeks NSTs at 32 weeks and growth US at 32(nl) and 36 weeks Pre E labs (5) Not immune to rubella: COMMENT: MMR pp (6) Supervision of high-risk : QUALIFIERS: Trimester: third trimester Qualified Code(s): O09.93 - Supervision of high risk , unspecified, third trimester COMMENT: PRR , CRISTINA 10/19/24, boy Eri (7) : QUALIFIERS: Weeks of gestation: 36 weeks Qualified Code(s): Z3A.36 - 36 weeks gestation of COMMENT: Horizon neg. NIPT low risk boy. afp declined. PLAN: Plan normal P:Cr ratio and reactive nst. bp's stable ok to dc to home after labs are all back and found to be normal. Charges/Coding Multi Select Codes Urinary/Genital Urinary/Genital CPT Codes: 11444-64 non-stress test Interp
--- NOTE | 2024-09-24 13:16 | OB.TRI.NOTE ---
HPI - General HPI Narrative STARLA LAM, is a 23 F who presents to L&D from the office due to some elevated bp's and a non-reactive nst. She denies headaches, visual changes or epigastric pain. her bp on arrival here was a systolic of 117. THe rest of the bp's have been 130's/ 80's. She had one bp that was 140/90 and has IOL set up for friday. Maternal Data Information CRISTINA Calculator Estimated Delivery Date Method Current WG Current Estimate 10/19/24 LMP (Certain) 36w 3d Other Estimates 10/15/24 Ultrasound #1 37w 0d PFSH PFSH Medical History Seasonal allergies Fertility testing PCOS (polycystic ovarian syndrome) Infertility Infertility associated with anovulation Supervision of high-risk Wears glasses Heartburn Non-smoker Bartholin cyst Home Medications ?Medication ?Instructions ?Recorded ?Last Taken ?Type magnesium 200 mg tablet 400 mg PO QDAY 03/02/24 08/24/24 08:00 History multivitamin no.47-iron fum 27 1 cap PO DAILY 03/02/24 08/24/24 08:00 History mg-folate no.1 1 mg-dha 300 mg capsule (PNV-DHA) aspirin 81 mg tablet,delayed 81 mg PO QDAY 05/31/24 08/24/24 08:00 History release (Adult Aspirin Regimen) labetalol 100 mg tablet 100 mg PO BID #60 tabs 07/01/24 08/24/24 08:00 Rx ondansetron 4 mg disintegrating 4 mg PO Q6H PRN nausea and 08/17/24 Unknown Rx tablet vomiting #10 tabs pantoprazole 40 mg tablet,delayed 40 mg PO BID 7 days #14 tabs 08/17/24 Unknown Rx release (Protonix) Allergy/AdvReac Type Severity Reaction Status Date / Time No Known Allergies Allergy Verified 09/24/24 10:26 Family History Father Hypertension Grandmother Hypertension Surgical History S/P D&C (status post dilation and curettage) Status post laparoscopy (~02/26/22) Hx of tooth extraction Social History adopted: No household members: spouse current occupational status: unemployed current occupational exposures/hazards: No pets and animals: Yes (outside) pets and animals: dog(s) history of recent travel: Yes (- February ) out of state: Yes out of country: No sexually active: Yes Smoking Status: Never smoker alcohol intake: current alcohol intake frequency: holidays/special occasions only details: not while substance use type: does not use diet: gluten free and lactose free well-balanced diet: daily or most days caffeine: No eating out: rarely or never during the past year weight has: remained stable what type of physical activity do you participate in: walking frequency: 1-2 times per week duration: 15-30 minutes/day preethi/christianity: Sabianist seatbelt use: sometimes do you feel safe at home: Yes additional social history: - 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 Date Name GA/Weeks Outcome Route Bth Weight Infant Gen Labor Lgth Anesthesia Del Locatn Provider FOB 11/26/23 D+C 6 spontaneous Visit Details Expected Delivery Route/Plan Labor Preferences- CB/BF classes: no labor support person: Eri labor intervention preferences: [] pain management options preferred: epidural cut cord/dad catch: cord : yes PP control planned: discussed discussed possible routes of delivery and associated risks: [] special requests: [] Plans Covid status: [] Flu vaccine: declined Tdap vaccine: [] Rhogam: NA LARC form signed: yes Problem list reviewed and updated with the most current plan of care details and appropriate orders placed. Relevant counseling for the gestational age provided. Continue routine care and follow up unless otherwise noted in visit notes/problem list details OB Flowsheet Initial Weight: 236 lb Date <del>?</del> EGA Weight BP Urine Prot <del>?</del> Glucose FHR FuHt Pres Dilation <del>?</del> Effaced St Visit Note 03/08/24 <del>?</del> 7w 6d 236 lb (+0 oz) 145/85 <del>?</del> 160 <del>?</del> KW- CRL cons with dates. accepts NIPT. return to office in 2 weeks for FHT, BP check, and labs. 03/25/24 <del>?</del> 10w 2d 238 lb (+2 lb) 137/96 140/86 Negative <del>?</del> Negative 171 <del>?</del> KW- doing well. CRL still cons with dates. Labs today. ASA recommended 04/06/24 <del>?</del> 12w 0d 240 lb 6 oz (+4 lb 6 oz) 146/83 Negative <del>?</del> Negative 154 <del>?</del> JV- no cramping or spotting. no REESE today. still nauseated. rpt NIPT today. JV- no cramping or spotting. no REESE today. still nauseated. rpt NIPT today. Still having high blood pressure. baseline [place]:Cr ordered. starting procardia. mfm ultrasound ordered. 05/07/24 <del>?</del> 16w 3d 244 lb 8 oz (+8 lb 8 oz) 151/83 134/86 Negative <del>?</del> Negative 150 <del>?</del> SM- no vb lof cramping bps WNL 05/31/24 <del>?</del> 19w 6d 250 lb (+14 lb) 149/89 123/85 Negative <del>?</del> Negative 145 20 <del>?</del> KW- no vb/lof/ctx. good fm. had reviewed BPs from home at last visit and decided she did not need Procardia. Home bps are 120/70. KW- no vb/lof/ctx. good fm. had reviewed BPs from home at last visit and decided she did not need Procardia. Home bps are 120/70. Procardia was giving pt a headache when she took it. additional US views scheduled with [facility] 07/01/24 <del>?</del> 24w 2d 254 lb 4 oz (+18 lb 4 oz) 142/94 Negative <del>?</del> Negative 150 <del>?</del> JV- still has elevated pressures here and a heart rate of 125. states heart races at home. will try a beta oralia. RTO in 1 week for bp check 07/08/24 <del>?</del> 25w 2d 256 lb (+20 lb) 148/84 Negative <del>?</del> Negative <del>?</del> SM reviewed with patient needs to take full amount of medication- she wasn't because it made her scalp tingle, she states bps nl at home, but fan tart taking full amount, fu in office next week for bp check 07/22/24 <del>?</del> 27w 2d 254 lb (+18 lb) 126/86 Negative <del>?</del> Negative 155 0 <del>?</del> JV- pt presents with the complaint of seeing blood tinged discharge. she states that she always has a yellow discharge. on exam there is pooling of fluid suspicious for ROM. sending to L&D now for us and sending ROM plus now. 07/27/24 <del>?</del> 28w 0d 252 lb 8 oz (+16 lb 8 oz) 130/80 Negative <del>?</del> Negative 159 28 <del>?</del> MH-No VB since in WP 07/23. No cramping. Good FM. 28 wk labs. Larc 08/10/24 <del>?</del> 30w 0d 255 lb (+19 lb) 122/87 Negative <del>?</del> Negative 145 30 <del>?</del> KW- no vb/lof/ctx. good fm. Needs US and NSTs scheduled. discussed timing of those and delivery at 37 weeks 08/24/24 <del>?</del> 32w 0d 254 lb 2 oz (+18 lb 2 oz) 134/86 Negative <del>?</del> Negative 140 32 <del>?</del> SM- no vb lof good fm no regular ctx, SM- no vb lof good fm no regular ctx, to l and d for variable 08/27/24 <del>?</del> 32w 3d 256 lb 2 oz (+20 lb 2 oz) 137/88 Negative <del>?</del> Negative 135 <del>?</del> LC- nst only. reactive. no concerns. 08/31/24 <del>?</del> 33w 0d 256 lb (+20 lb) 128/84 Negative <del>?</del> Negative 150 <del>?</del> MH-No VB, LOF. Good FM. Reactive NST. 09/02/24 <del>?</del> 33w 2d 256 lb (+20 lb) 129/85 Negative <del>?</del> Negative 145 <del>?</del> KW- NST only-reactive 09/07/24 <del>?</del> 34w 0d 258 lb 4 oz (+22 lb 4 oz) 118/77 Trace <del>?</del> Negative 140 33 <del>?</del> -No VB. Good FM. Denies headache, vision changes. Labs today. reactive NST 09/10/24 <del>?</del> 34w 3d 258 lb 4 oz (+22 lb 4 oz) 134/84 Negative <del>?</del> Negative 130 <del>?</del> JV- NST only today with reactive nst. no complaint. plan 37 week IOL. 09/14/24 <del>?</del> 35w 0d 260 lb (+24 lb) 138/82 Negative <del>?</del> Negative 140 34 <del>?</del> MH-No VB, LOF. Good FM. Reactive NST 09/17/24 <del>?</del> 35w 3d 259 lb 4 oz (+23 lb 4 oz) 137/85 Negative <del>?</del> Negative 145 <del>?</del> KW- NST not reactive. to WP for BPP 05/06/25 <del>?</del> 36w 0d 260 lb 4 oz (+24 lb 4 oz) 121/83 Negative <del>?</del> Negative 140 0 <del>?</del> -3 KW- NST reactive. 37 week IOL set up next week GBS today 09/24/24 <del>?</del> 36w 3d 261 lb 6 oz (+25 lb 6 oz) 145/78 140/82 Negative <del>?</del> Negative 140 <del>?</del> JV- sending to L&D for further work up .strip not reative and an unconnected decel to 40 was possible. pt had headache this am that is now gone. ROS Constitutional Constitutional: Reports systems reviewed and no addt'l complaints, except as documented Gastrointestinal Gastrointestinal: Denies bloating, constipation, cramping, diarrhea, nausea or vomiting Genitourinary Genitourinary: Reports other Details: Denies vaginal odor, vaginal bleeding, or vaginal discharge ; Denies difficulty urinating or flank pain NST FHR Rate Baby A Baseline: 140 Variability:: Moderate Accelerations:: 15 x 15 Decelerations:: None NST Reactive:: Yes FHR Category:: Category I Assessment & Plan (1) Positive GBS test: COMMENT: treat in labor (2) Non-reactive NST (non-stress test): COMMENT: BPP /8 NST reassuring on WP- D/C home (3) Vaginal bleeding during : (4) Chronic hypertension affecting : COMMENT: uncontrolled- tried procardia and pressures went too low at home. starting labetalol 07/01/24/controlled deliver 37-38 weeks NSTs at 32 weeks and growth US at 32(nl) and 36 weeks Pre E labs (5) Not immune to rubella: COMMENT: MMR pp (6) Supervision of high-risk : QUALIFIERS: Trimester: third trimester Qualified Code(s): O09.93 - Supervision of high risk , unspecified, third trimester COMMENT: PRR , CRISTINA 10/19/24, boy Eri (7) : QUALIFIERS: Weeks of gestation: 36 weeks Qualified Code(s): Z3A.36 - 36 weeks gestation of COMMENT: Horizon neg. NIPT low risk boy. afp declined. PLAN: Plan normal P:Cr ratio and reactive nst. bp's stable ok to dc to home after labs are all back and found to be normal. Charges/Coding Multi Select Codes Urinary/Genital Urinary/Genital CPT Codes: 90161-85 non-stress test Interp
[2024-09-24 13:25] LABS: AST(SGOT) 19 U/L (<=31); Alanine Aminotransfer ALT/SGPT 15 U/L (<=34); Creatinine, Serum 0.56 mg/dL (0.70-1.20); EST Glomerular Filtration Rate 130 (>60); Estimated Creatinine Clearance 206.41 ml/min (50-250); Uric Acid 4.2 mg/dL (2.6-6.0)
== END 2024-09-24 13:35 | disposition home or self-care (01) ==
LOC: WPOUT 11:02 → WP 11:03
PROVIDERS: Obstetrics & Gynecology; PCP Family Medicine; Referring Provider Registered Nurse; Visit Provider Registered Nurse
DX: O10.013 Pre-existing essential hypertension complicating pregnancy, third trimester (principal); Z3A.36 36 weeks gestation of pregnancy; O46.93 Antepartum hemorrhage, unspecified, third trimester; O98.813 Other maternal infectious and parasitic diseases complicating pregnancy, third trimester; B95.1 Streptococcus, group B, as the cause of diseases classified elsewhere
CPT/HCPCS: 59025; 59050; 82565; 82570; 84156; 84450; 84460; 84550; 85027; 99221; G0378

== ENCOUNTER 2024-09-28 19:16 | Inpatient (IN) | payer SELFPAY, OTHER ==
[2024-09-28 19:18] VITALS: BMI 38.7
[2024-09-28 19:46] VITALS: BP 133/97; PULSE 109; RESP 16; TEMP 36.5
[2024-09-28 20:13] LABS: Absolute Lymphocyte Count 2.18 X10^3/uL (0.83-4.51); Absolute Neutrophil Count 9.3 X10^3/uL (2.0-7.7); Basophil# 0.02 X10^3/uL; Basophil% 0.2 % (0-1); Eosinophil# 0.06 X10^3/uL; Eosinophils% 0.5 % (0-5); Hematocrit 35.4 % (37-47); Hemoglobin 12.2 g/dL (12.0-15.0); Lymphocyte # 2.18 X10^3/ul (0.83-4.51); Lymphocyte % 17.4 % (19-41); Mean Corp Hgb Conc 34.5 g/dL (32-36); Mean Corpuscular Hgb 30.7 pg (27.0-32.0); Mean Corpuscular Volume 88.9 fL (81-99); Mean Platelet Vol. 10.1 fl (6.2-12.0); Monocyte# 0.92 X10^3/uL; Monocyte% 7.3 % (0-10); NRBC Flagged by Analyzer 0 % (0-5); Neutrophil # 9.29 X10^3/uL (2.7-7.7); Platelet Count 258 K/mm3 (150-450); RBC Distribution Width CV 13.5 % (11.6-14.6); RBC Distribution Width SD 43.8 fl (35.1-43.9); Red Blood Count 3.98 M/mm3 (4.2-5.4); White Blood Count 12.6 K/mm3 (4.4-11.0)
[2024-09-28] MEDS: miSOPROStol 25 MCG TABLET VAGINAL (20:40)
[2024-09-28 21:14] LABS: Syphilis Antibodies Nonreactive (Nonreactive)
[2024-09-28] MEDS: Labetalol 100 MG Tablet PO (21:56)
[2024-09-28 23:41] VITALS: BP 118/65; PULSE 81; O2SAT 97
[2024-09-28 23:42] VITALS: RESP 16; TEMP 36.3
[2024-09-29] VITALS (47 sets, daily range): BP systolic 108–158; BP diastolic 59–99; PULSE 72–115; RESP 16–18; TEMP 36.1–37.2; O2SAT 96–100
[2024-09-29] MEDS: miSOPROStol 25 MCG TABLET VAGINAL ×2 (00:42→04:50)
[2024-09-29] MEDS: Acetaminophen 500 MG Tablet PO ×2 (07:39→20:03)
[2024-09-29] MEDS: 0.9% Normal Saline Single 100 ML IV.SOLN. INTRA-UTER (07:50)
--- NOTE | 2024-09-29 07:53 | HP.PCM.OB_ITS ---
HPI - General General Date of Admission: 09/28/24 HPI Narrative STARLA LAM, is a 23 y/o @ 37w1d who presents to L&D for IOL for gestational hypertension. She presented last night for cervical ripening. Her last dose of cytotec is up at 9 am. She states that she just noticed some bloody show when she used the rest room. Has some cramping and is asking for her epidural soon. She consents to a marx bulb this am. Maternal Data Information CRISTINA Calculator Estimated Delivery Date Method Current WG Current Estimate 10/19/24 LMP (Certain) 37w 1d Other Estimates 10/15/24 Ultrasound #1 37w 5d PFSH PFSH Medical History Seasonal allergies Fertility testing PCOS (polycystic ovarian syndrome) Infertility Infertility associated with anovulation Supervision of high-risk Wears glasses Heartburn Non-smoker Bartholin cyst Home Medications ?Medication ?Instructions ?Recorded ?Last Taken ?Type magnesium 200 mg tablet 400 mg PO QDAY 09/27/24 History multivitamin no.47-iron fum 27 1 cap PO DAILY pregnanc y 03/02/24 09/27/24 History mg-folate no.1 1 mg-dha 300 mg capsule (PNV-DHA) aspirin 81 mg tablet,delayed 81 mg PO QDAY 0 05/31/24 09/26/24 History release (Adult Aspirin Regimen) labetalol 100 mg tablet 100 mg PO BID #60 tabs 07/01/24 09/28/24 Rx Allergy/AdvReac Type Severity Reaction Status Date / Time No Known Allergies Allergy Verified 09/28/24 19:58 Family History Father Hypertension Grandmother Hypertension Surgical History S/P D&C (status post dilation and curettage) Status post laparoscopy (~02/26/22) Hx of tooth extraction Social History adopted: No household members: spouse current occupational status: unemployed current occupational exposures/hazards: No pets and animals: Yes (outside) pets and animals: dog(s) history of recent travel: Yes (- February ) out of state: Yes out of country: No sexually active: Yes Smoking Status: Never smoker alcohol intake: current alcohol intake frequency: holidays/special occasions only details: not while substance use type: does not use diet: gluten free and lactose free well-balanced diet: daily or most days caffeine: No eating out: rarely or never during the past year weight has: remained stable what type of physical activity do you participate in: walking frequency: 1-2 times per week duration: 15-30 minutes/day preethi/scientologist: Mandaen seatbelt use: sometimes do you feel safe at home: Yes additional social history: - Eri: [employer] History 2 Elective abortions Hx Para 1 Spontaneous abortions 1 Hx # Term Pregnancies Ectopic pregnancies Hx # Pregnancies Multiple births # of living children 0 Past Pregnancies Del. Date Name GA/Weeks Outcome Route Bth Weight Gen Labor Lgth Anesthesia Del Locatn Provider FOB 11/26/23 D+C 6 spontaneous Visit Details Expected Delivery Route/Plan Labor Preferences- CB/BF classes: no labor support person: Eri labor intervention preferences: [] pain management options preferred: epidural cut cord/dad catch: cord : yes PP control planned: discussed discussed possible routes of delivery and associated risks: [] special requests: [] Plans Covid status: [] Flu vaccine: declined Tdap vaccine: [] Rhogam: NA LARC form signed: yes Problem list reviewed and updated with the most current plan of care details and appropriate orders placed. Relevant counseling for the gestational age provided. Continue routine care and follow up unless otherwise noted in visit notes/problem list details OB Flowsheet Initial Weight: 236 lb Date -?--?-?-?-?-?-?-?-?-?-?-?- EGA Weight BP Urine Prot -?-?-?-?-?-?-?-?-?-?-?-?- Glucose FHR FuHt Pres Dilation -?-?-?-?-?-?-?-?-?-?-?-?- Effaced St Visit Note 03/08/24 -?-?-?-?-?-?-?-?-?-?-?-?- 7w 6d 236 lb (+0 oz) 145/85 -?-?-?-?-?-?-?-?-?-?-?-?- 160 -?-?-?-?-?-?-?-?-?-?-?-?- KW- CRL cons wit h dates. accepts NIPT. return to office in 2 weeks for FHT, BP check, and labs. 03/25/24 -?-?-?-?-?-?-?-?-?-?-?-?- 10w 2d 238 lb (+2 lb) 137/96 140/86 Negative -?-?-?-?-?-?-?-?-?-?-?-?- Negative 171 -?-?-?-?-?-?-?-?-?-?-?-?- KW- doing well. CRL still cons with dates. Labs today. ASA recommended 04/06/24 -?-?-?-?-?-?-?-?-?-?-?-?- 12w 0d 240 lb 6 oz (+4 lb 6 oz) 146/83 Negative -?-?-?-?-?-?-?-?-?-?-?-?- Negative 154 -?-?-?-?-?-?-?-?-?-?-?-?- JV- no cramping or spotting. no REESE today. still nauseated. rpt NIPT today. JV- no cramping or spotting. no REESE today. still nauseated. rpt NIPT today. Still having high blood pressure. baseline ND:Cr ordered. starting procardia. mfm ultrasound ordered. 05/07/24 -?-?-?-?-?-?-?-?-?-?-?-?- 16w 3d 244 lb 8 oz (+8 lb 8 oz) 151/83 134/86 Negative -?-?-?-?-?-?-?-?-?-?-?-?- Negative 150 -?-?-?-?-?-?-?-?-?-?-?-?- SM- no vb lof cr amping bps WNL 05/31/24 -?-?-?-?-?-?-?-?-?-?-?-?- 19w 6d 250 lb (+14 lb) 149/89 123/85 Negative -?-?-?-?-?-?-?-?-?-?-?-?- Negative 145 20 -?-?-?-?-?-?-?-?-?-?-?-?- KW- no vb/lof/ct x. good fm. had reviewed BPs from home at last visit and decided she did not need Procardia. Home bps are 120/70. KW- no vb/lof/ctx. good fm. had reviewed BPs from home at last visit and decided she did not need Procardia. Home bps are 120/70. Procardia was giving pt a headache when she took it. additional US views scheduled with [facility] 07/01/24 -?-?-?-?-?-?-?-?-?-?-?-?- 24w 2d 254 lb 4 oz (+18 lb 4 oz) 142/94 Negative -?-?-?-?-?-?-?-?-?-?-?-?- Negative 150 -?-?-?-?-?-?-?-?-?-?-?-?- JV- still has el evated pressures here and a heart rate of 125. states heart races at home. will try a beta oralia. RTO in 1 week for bp check 07/08/24 -?-?-?-?-?-?-?-?-?-?-?-?- 25w 2d 256 lb (+20 lb) 148/84 Negative -?-?-?-?-?-?-?-?-?-?-?-?- Negative -?-?-?-?-?-?-?-?-?-?-?-?- SM reviewed with patient needs to take full amount of medication- she wasn't because it made her scalp tingle, she states bps nl at home, but fan tart taking full amount, fu in office next week for bp check 07/22/24 -?-?-?-?-?-?-?-?-?-?-?-?- 27w 2d 254 lb (+18 lb) 126/86 Negative -?-?-?-?-?-?-?-?-?-?-?-?- Negative 155 0 -?-?-?-?-?-?-?-?-?-?-?-?- JV- pt presents with the complaint of seeing blood tinged discharge. she states that she always has a yellow discharge. on exam there is pooling of fluid suspicious for ROM. sending to L&D now for us and sending ROM plus now. 07/27/24 -?-?-?-?-?-?-?-?-?-?-?-?- 28w 0d 252 lb 8 oz (+16 lb 8 oz) 130/80 Negative -?-?-?-?-?-?-?-?-?-?-?-?- Negative 159 28 -?-?-?-?-?-?-?-?-?-?-?-?- MH-No VB since i n WP 07/23. No cramping. Good FM. 28 wk labs. [facility] 08/10/24 -?-?-?-?-?-?-?-?-?-?-?-?- 30w 0d 255 lb (+19 lb) 122/87 Negative -?-?-?-?-?-?-?-?-?-?-?-?- Negative 145 30 -?-?-?-?-?-?-?-?-?-?-?-?- KW- no vb/lof/ct x. good fm. Needs US and NSTs scheduled. discussed timing of those and delivery at 37 weeks 08/24/24 -?-?-?-?-?-?-?-?-?-?-?-?- 32w 0d 254 lb 2 oz (+18 lb 2 oz) 134/86 Negative -?-?-?-?-?-?-?-?-?-?-?-?- Negative 140 32 -?-?-?-?-?-?-?-?-?-?-?-?- SM- no vb lof go od fm no regular ctx, SM- no vb lof good fm no reg ular ctx, to l and d for variable 08/27/24 -?-?-?-?-?-?-?-?-?-?-?-?- 32w 3d 256 lb 2 oz (+20 lb 2 oz) 137/88 Negative -?-?-?-?-?-?--?-?-?-?-?-?- Negative 135 -?-?-?-?-?-?-?-?-?-?-?-?- LC- nst only. re active. no concerns. 08/31/24 -?-?-?-?-?-?-?-?-?-?-?-?- 33w 0d 256 lb (+20 lb) 128/84 Negative -?-?-?-?-?-?-?-?-?-?-?-?- Negative 150 -?-?-?-?-?-?-?-?-?-?-?-?- -No VB, LOF. G ood FM. Reactive NST. 09/02/24 -?-?-?-?-?-?-?-?-?-?-?-?- 33w 2d 256 lb (+20 lb) 129/85 Negative -?-?-?-?-?-?-?-?-?-?-?-?- Negative 145 -?-?-?-?-?-?-?-?-?-?-?-?- KW- NST only-[place] ctive 09/07/24 -?-?-?-?-?-?-?-?-?-?-?-?- 34w 0d 258 lb 4 oz (+22 lb 4 oz) 118/77 Trace -?-?-?-?-?-?-?-?-?-?-?-?- Negative 140 33 -?-?-?-?-?-?-?-?-?-?-?-?- -No VB. Alexsander Alvarez Denies headache, vision changes. Labs today. reactive NST 09/10/24 -?-?-?-?-?-?-?-?-?-?-?-?- 34w 3d 258 lb 4 oz (+22 lb 4 oz) 134/84 Negative -?-?-?-?-?-?-?-?-?-?-?-?- Negative 130 -?-?-?-?-?-?-?-?-?-?-?-?- JV- NST only tod ay with reactive nst. no complaint. plan 37 week IOL. 09/14/24 -?-?-?-?-?-?-?-?-?-?-?-?- 35w 0d 260 lb (+24 lb) 138/82 Negative -?-?-?-?-?-?-?-?-?-?-?-?- Negative 140 34 -?-?-?-?-?-?-?-?-?-?-?-?- MH-No VB, LOF. G ood FM. Reactive NST 09/17/24 -?-?-?-?-?-?-?-?-?-?-?-?- 35w 3d 259 lb 4 oz (+23 lb 4 oz) 137/85 Negative -?-?-?-?-?-?-?-?-?-?-?-?- Negative 145 -?-?-?-?-?-?-?-?-?-?-?-?- KW- NST not reac tive. to WP for BPP 09/21/24 -?-?-?-?-?-?-?-?-?-?-?-?- 36w 0d 260 lb 4 oz (+24 lb 4 oz) 121/83 Negative -?-?-?-?-?-?-?-?-?-?-?-?- Negative 140 0 -?-?-?-?-?-?-?-?-?-?-?-?- -3 KW- NST reactive. 37 week IOL set up next week GBS today 09/24/24 -?-?-?-?-?-?-?-?-?-?-?-?- 36w 3d 261 lb 6 oz (+25 lb 6 oz) 145/78 140/82 Negative -?-?-?-?-?-?-?-?-?-?-?-?- Negative 140 -?-?-?-?-?-?-?-?-?-?-?-?- JV- sending to L &D for further work up .strip not reative and an unconnected decel to 40 was possible. pt had headache this am that is now gone. 09/28/24 -?-?-?-?-?-?-?-?-?-?-?-?- 37w 0d 262 lb 6 oz (+26 lb 6 oz) 110/76 Negative -?-?-?-?-?-?-?-?-?-?-?-?- Negative 130 -?-?-?-?-?-?-?-?-?-?-?-?- LC-reactive nst. no vb/ctx/lof. has iol scheduled for tonight ROS Constitutional Constitutional: Denies change in weight, fatigue, fever(s), headache(s), poor appetite or weakness Eyes Eyes: Denies blurry vision, change in vision, seeing flashes or spots in vision ENT HEENT: Denies dizziness, headache(s), loss taste/smell or sore throat Cardiovascular Cardiovascular: Denies chest pain, dizziness, dyspnea, irregular heart rhythm, leg edema, palpitations, rapid heart rate or vomiting Respiratory/Chest Respiratory/Chest: Denies chest tightness, cough, dyspnea or breast pain Gastrointestinal Gastrointestinal: Denies abdominal pain, anorexia, constipation, cramping, diarrhea, hemorrhoids, vomiting or weight changes Genitourinary Genitourinary: Denies dysuria, flank pain, genital lesions, genital pain, urinary frequency or urinary urgency Musculoskeletal Musculoskeletal: Denies back pain, difficulty walking, joint pain, limited range of motion, muscle cramps or numbness Integumentary Integumentary: Denies lesions or unusual bruising Neurologic Neurologic: Denies abnormal movements, abnormal speech, dizziness, numbness, seizure-like activity or syncope Psychiatric Psychiatric: Denies anxiety, behavioral changes, change in appetite, change in libido, cognitive impairment, confusion, depression, difficulty concentrating, hallucinations or suicidal thoughts Endocrine Endocrinology: Denies excessive sweating, polydipsia or polyuria Hematologic/Lymphatic Hematologic/Lymphatic: Denies easy bleeding, easy bruising or lymphadenopathy Allergic/Immunologic Allergic/Immunologic: Denies itchy eyes, lip swelling, seasonal rhinorrhea, rhinitis, throat swelling, tongue swelling, eczemia, wheezing or asthma Vital Signs Vital Signs Vital Signs: 09/28/24 19:46 09/28/24 19:46 09/28/24 19:46 Temperature Temperature Source Temporal Pulse Rate 109 H Respiratory Rate Blood Pressure 133/97 H BP Systolic 133 BP Diastolic 97 Pulse Ox 09/28/24 19:46 09/28/24 19:46 09/28/24 23:41 Temperature 97.7 F L Temperature Source Pulse Rate Respiratory Rate 16 Blood Pressure 118/65 BP Systolic 118 BP Diastolic 65 Pulse Ox 09/28/24 23:41 09/28/24 23:41 09/28/24 23:42 Temperature Temperature Source Temporal Pulse Rate 81 Respiratory Rate Blood Pressure BP Systolic BP Diastolic Pulse Ox 97 09/28/24 23:42 09/28/24 23:42 09/29/24 00:37 Temperature 97.4 F L Temperature Source Pulse Rate 93 Respiratory Rate 16 Blood Pressure BP Systolic BP Diastolic Pulse Ox 09/29/24 00:37 09/29/24 00:38 09/29/24 00:38 Temperature Temperature Source Temporal Pulse Rate Respiratory Rate Blood Pressure 118/62 BP Systolic 118 BP Diastolic 62 Pulse Ox 96 09/29/24 00:38 09/29/24 00:38 09/29/24 00:38 Temperature 97.4 F L Temperature Source Pulse Rate 87 Respiratory Rate 16 Blood Pressure BP Systolic BP Diastolic Pulse Ox 09/29/24 04:37 09/29/24 04:37 09/29/24 04:37 Temperature Temperature Source Temporal Pulse Rate 83 Respiratory Rate Blood Pressure 125/67 H BP Systolic 125 BP Diastolic 67 Pulse Ox 09/29/24 04:37 09/29/24 04:37 09/29/24 07:12 Temperature 97.3 F L Temperature Source Pulse Rate Respiratory Rate 16 Blood Pressure 134/79 H BP Systolic 134 BP Diastolic 79 Pulse Ox 09/29/24 07:12 09/29/24 07:12 09/29/24 07:12 Temperature Temperature Source Temporal Pulse Rate 92 Respiratory Rate 16 Blood Pressure BP Systolic BP Diastolic Pulse Ox 09/29/24 07:12 Temperature 97.6 F L Temperature Source Pulse Rate Respiratory Rate Blood Pressure BP Systolic BP Diastolic Pulse Ox Weight Weight: 262 lb 12.8 oz Body Mass Index (BMI) 38.7 Physical Exam Const alert, oriented x3, no apparent distress and healthy appearing General Appearance: cooperative; Negative for anxious HEENT normocephalic Face and Sinus: normal facial exam Eyes EOMs intact bilaterally and no scleral icterus General Eye: normal appearance of both eyes Neck full ROM and supple Lymph Lymphatic: no lymphadenopathy noted Chest Chest: abnormal inspection of the chest Resp normal respiratory effort Effort and Inspection: able to speak in complete sentences Cardio regular rate GI soft to palpation and non-tender Inspection: gravid Palpation: soft; Negative for tender external exam normal Manual OB Exam: other a marx balloon was inserted into the cervix and inflated with 50cc ns without difficulty. Back/Spine no CVA tenderness Extremity normal to inspection, full ROM and no clubbing, cyanosis or edema General Extremity: Negative for calf tenderness or edema Skin Lesions: no lesions Rashes: no rashes Psych mental status grossly normal Labs Labs Labs: Blood Type A POSITIVE Antibody Screen NEGATIVE Hct 35.4 % (37-47) L Hgb 12.2 g/dL (12.0-15.0) Obstetrics Ultrasound Syphilis Total Ab Nonreactive (Nonreactive) Rubella IgG Antibody Non-Reactive (Nonreactive) Hep Bs Antigen Non-Reactive (Nonreactive) Hepatitis C Antibody Non-Reactive (Nonreactive) Chlamydia DNA (KATHE) Negative (Negative) N.gonorrhoeae DNA (KATHE) Negative (Negative) HIV 1&2 Antibody Nonreactive (Nonreactive) Glucose 1 Hr 50 gm 93 mg/dL (70-140) Assessment & Plan (1) Positive GBS test: COMMENT: treat in labor (2) Chronic hypertension affecting : COMMENT: uncontrolled- tried procardia and pressures went too low at home. starting labetalol 07/01/24/controlled deliver 37-38 weeks NSTs at 32 weeks and growth US at 32(nl) and 36 weeks Pre E labs (3) Not immune to rubella: COMMENT: MMR pp (4) Supervision of high-risk : QUALIFIERS: Trimester: third trimester Qualified Code(s): O09.93 - Supervision of high risk , unspecified, third trimester COMMENT: PRR , CRISTINA 10/19/24, boy Eri (5) : QUALIFIERS: Weeks of gestation: 37 weeks Qualified Code(s): Z3A.37 - 37 weeks gestation of COMMENT: Horizon neg. NIPT low risk boy. afp declined. PLAN: Plan Patient presents IOL, plan management for with marx now, then pitocin at 9 am if contraction pattern allows and AROM when marx comes out. . Pain management: plans epidural. GBS pos- start pcn . Management of any complications: none I have reviewed the [facility] and made any clinically relevant updates.
[2024-09-29] MEDS: 0.9% Saline Lock 10 ML Syringe IV (08:10)
[2024-09-29] MEDS: Lactated Ringers 1,000 ML 999 ML IV (08:13)
[2024-09-29] MEDS: Lactated Ringers 1,000 ML 200 ML IV ×3 (09:23→21:49)
[2024-09-29] MEDS: fentaNYL-bupivacaine (epidural) 100 ML BAG EPIDURAL ×4 (09:47→23:30)
[2024-09-29] MEDS: Labetalol 100 MG Tablet PO ×2 (09:54→21:49)
[2024-09-29] MEDS: Penicillin G Pot 5,000,000 UNITS in 0.9% Normal Saline (100mL MB+) 100 ML 150 UNITS IV (11:02)
--- NOTE | 2024-09-29 13:11 | PCM.PN.BLA ---
Progress Note Patient is comfortable with epidural. She consents verbally for arom and IUPC placement. Nurse still has not been able to start pit due to high frequency, low amplitude contractions current tracing: FHT: Moderate variability reactive no decelerations category I tracing [place]: 1-2 min Contractions cx: internal os is 5 cm and external is 4 cm/60% effaced and -2 station. membranes ruptured and iupc placed without difficulty. Scant clear fluid with blood tinge mucous from the cervix. reviewed tracing abnormalities since last note: no changes A/P: gestational hypertension -continue pcn -start pit when able
[2024-09-29] MEDS: Oxytocin 15 Units/NS 250ml 15 UNITS/250 ML IV.SOLN 2 UNITS IV (13:34)
[2024-09-29] MEDS: Penicillin G 3,000,000 Units 50 ML 100 UNITS IV ×3 (15:15→23:06)
--- NOTE | 2024-09-29 17:07 | PN_ITS ---
Progress Note patient is comfortable with epidural. current tracing: FHT: 140's Moderate variability reactive no decelerations category I tracing [place]: q2 min Contractions with MVU approx 280 cx /-1 reviewed tracing abnormalities since last note: no change, cat 1 A/P: continue current dose of pitocin
[2024-09-29] MEDS: LACTATED RINGERS 500 ML 999 ML IV (17:41)
[2024-09-29] MEDS: Ondansetron 4 MG/2 ML Vial IV (23:40)
[2024-09-30] VITALS (58 sets, daily range): BP systolic 110–142; BP diastolic 60–85; PULSE 72–127; RESP 14–18; TEMP 36.1–38; O2SAT 89–100
[2024-09-30] MEDS: DiphenhydrAMINE 50 MG/ML Syringe IV (00:09)
[2024-09-30] MEDS: LACTATED RINGERS 500 ML 999 ML IV (01:20)
[2024-09-30] MEDS: Penicillin G 3,000,000 Units 50 ML 100 UNITS IV ×3 (03:00→11:41)
[2024-09-30] MEDS: fentaNYL-bupivacaine (epidural) 100 ML BAG EPIDURAL ×2 (04:12→09:08)
[2024-09-30] MEDS: Lactated Ringers 1,000 ML 200 ML IV ×2 (04:12→09:13)
--- NOTE | 2024-09-30 08:42 | PCM.PN.BLA ---
Progress Note 6 cm now, discussed continued exp ,management, moving patient position due to new late decels.
[2024-09-30] MEDS: 0.9% Saline Lock 10 ML Syringe IV ×2 (09:45→16:51)
[2024-09-30] MEDS: Ondansetron 4 MG/2 ML Vial IV (10:14)
[2024-09-30] MEDS: Labetalol 100 MG Tablet PO ×2 (10:47→22:15)
--- NOTE | 2024-09-30 13:30 | EX.PCM.OBVAG ---
Assessment & Plan (1) Non-reactive NST (non-stress test): COMMENT: BPP 12/24 NST reassuring on WP- D/C home (2) Vaginal bleeding during : (3) Chronic hypertension affecting : COMMENT: uncontrolled- tried procardia and pressures went too low at home. starting labetalol 07/01/24/controlled deliver 37-38 weeks NSTs at 32 weeks and growth US at 32(nl) and 36 weeks Pre E labs (4) Positive GBS test: COMMENT: treat in labor (5) Not immune to rubella: COMMENT: MMR pp (6) Supervision of high-risk : QUALIFIERS: Trimester: third trimester Qualified Code(s): O09.93 - Supervision of high risk , unspecified, third trimester COMMENT: PRR , CRISTINA 10/19/24, boy Eri (7) : QUALIFIERS: Weeks of gestation: 37 weeks Qualified Code(s): Z3A.37 - 37 weeks gestation of COMMENT: Horizon neg. NIPT low risk boy. afp declined. (8) Vaginal delivery: COMMENT: sm IOL chtn 37 boy Roly Maternal Data Information CRISTINA Calculator Estimated Delivery Date Method Current WG Current Estimate 10/19/24 LMP (Certain) 37w 2d Other Estimates 10/15/24 Ultrasound #1 37w 6d Vaginal Delivery Maternal Presentation Maternal Presentation: see assessment and plan Vaginal Delivery Information Procedure Performed: Spontaneous Vaginal Delivery Surgeon/Practitioner: Elsy Sanabria Pre-Procedure Diagnosis: see assessment and plan Post-Procedure Diagnosis: same Type of anesthesia: Epidural Estimated Blood Loss: 400 Findings Description of procedure: Patient began pushing and delivered the head in the timur presentation. The head was delivered atraumatically and a loose nuchal cord ?1 was identified and easily reduced over the infant's head. The anterior and posterior shoulders delivered without complication followed by the rest of the infant and the was placed on the maternal abdomen. Delayed cord clamping was employed for approximately 60 seconds. Cord was clamped and cut and gentle traction was applied to the cord and the placenta delivered spontaneously immediately following it was noted to be intact with three-vessel cord. The perineum and vagina were inspected and was noted to have a second -degree laceration that was repaired in the usual fashion with 3-0 vicryl rapide . EBL was 400. Patient and tolerated delivery well. Presentation: Vertex Placental Delivery Description: Spontaneous Specimen collected: Yes Description of specimen(s) removed: placenta Recorder Helper Seismograph vertical borer: No Post Vaginal Deli Medications given after delivery: Other (pitocin) Complication Complications: No Multi Select Codes Urinary/Genital Urinary/Genital CPT Codes: 97701 Vaginal Delivery [facility]
--- NOTE | 2024-09-30 13:33 | PCM.DC ---
Discharge Instructions Diet Discharge Diet: No restrictions DC O2, CPAP, BIPAP needs Home O2 Discharge instructions: No Dressing / Incision Discharge Activity: Return to Normal Activity, May Not Drive (while taking narcotic pain medications.) and May Shower May resume sexual activity in: 4-6 weeks Dressing / Incision Call your doctor if your incision/area has: Continuous Slow Oozing, Sudden Increased Bleeding, Increased Pain/ Swelling, Increased Redness and Foul Smelling Discharge Follow Up Care Please Follow Up With: Elsy Sanabria MD When: Call [phone] to make an appointment with your doctor in 6 weeks. If you had elevated blood pressure or 4th degree laceration, you will need to be seen in 2 weeks. Test Results: Test results from this visit will be discussed in further detail at your follow-up appointment, if applicable. Discharge Plan Admission Admit Date/Time: 09/28/24 19:16 Attending Provider: Elsy Sanabria Primary Care Provider: Samara Lazaro Discharge Orders/Prescriptions Prescriptions: No Action PNV-DHA 27 mg iron-1 mg -300 mg capsule 1 cap PO DAILY magnesium 200 mg tablet 400 mg PO QDAY aspirin [Adult Aspirin Regimen] 81 mg tablet,delayed release (DR/EC) 81 mg PO QDAY labetalol 100 mg tablet 100 mg PO BID Qty: 60 6RF Referrals / Follow Up: Samara Lazaro [facility] [Primary Care Provider] -
[2024-09-30] MEDS: Oxytocin 15 Units/NS 250ml 15 UNITS/250 ML IV.SOLN 83 UNITS IV (13:55)
[2024-09-30] MEDS: Naproxen 500 MG Tablet PO (14:42)
[2024-10-01 04:00] VITALS: BP 135/94; PULSE 90; RESP 17; TEMP 36.6; O2SAT 98
[2024-10-01 08:54] VITALS: BP 129/83; PULSE 100; RESP 18; TEMP 36.7; O2SAT 96
[2024-10-01] MEDS: Labetalol 100 MG Tablet PO (09:03)
[2024-10-01] MEDS: Naproxen 500 MG Tablet PO (09:03)
[2024-10-01] MEDS: Senna/Docusate Sodium 1 Tablet PO (09:03)
--- NOTE | 2024-10-01 09:53 | PCM.PN.OB ---
Subjective Subjective Patient doing well without complaints. Tolerating PO. Ambulating and voiding without difficulty. Denies chest pain, shortness of breath, calf pain/swelling, fevers, chills, lightheadedness. Objective Data Objective Data Vital Signs: Vital Signs Temp Pulse Resp BP Pulse Ox O2 Del Method 98.0 F 100 18 129/83 H 96 Room Air 10/01/24 08:54 10/01/24 08:54 10/01/24 08:54 10/01/24 08:54 10/01/24 08:54 10/01/24 08:54 Oxygen Delivery Method Room Air Weight: 262 lb 12.8 oz Body Mass Index (BMI) 38.7 Intake & Output: Intake and Output for Last 24 Hours 09/29/24 09/30/24 10/01/24 23:59 23:59 23:59 Intake Total 3774.87 / 3774.87 4830.13 / 4830.13 Output Total 2250 / 2250 4100 / 4100 Balance 1524.87 / 1524.87 730.13 / 730.13 Lab / Micro Data 09/28/24 19:30 ROS Constitutional Constitutional: Reports systems reviewed and no addt'l complaints, except as documented Cardiovascular Cardiovascular: Reports systems reviewed and no addt'l complaints, except as documented Respiratory/Chest Respiratory/Chest: Reports systems reviewed and no addt'l complaints, except as documented Gastrointestinal Gastrointestinal: Reports systems reviewed and no addt'l complaints, except as documented Physical Exam Const alert, oriented x3 and no apparent distress HEENT Head and Scalp: atraumatic Resp normal respiratory effort GI soft to palpation and non-tender Bimanual Exam - Vag & Uterus: uterus non-tender Uterus Palpation: uterus fundus firm (below Umbilicus) Assessment & Plan (1) Vaginal delivery: COMMENT: sm IOL chtn 37 boy Roly (2) Positive GBS test: COMMENT: treat in labor (3) Chronic hypertension affecting : COMMENT: uncontrolled- tried procardia and pressures went too low at home. starting labetalol 07/01/24/controlled deliver 37-38 weeks NSTs at 32 weeks and growth US at 32(nl) and 36 weeks Pre E labs PLAN: Plan s/p PPD # 1 1. routine post delivery care 2. breast feeding- support given 3. rh positive 4. rubella immune
--- NOTE | 2024-10-07 17:33 | PCM.DC.SUM ---
Providers Date of Admission: 09/28/24 Primary Care Physician: Samara Lazaro PA-C Reason For Visit: INDUCTION VAG DEL Diagnosis Discharge Diagnosis (1) Vaginal delivery: Status: Acute Code(s): O80 - Encounter for full-term uncomplicated delivery (2) Positive GBS test: Status: Acute Code(s): B95.1 - Streptococcus, group B, as the cause of diseases classified elsewhere (3) Chronic hypertension affecting : Status: Chronic Code(s): O10.919 - Unspecified pre-existing hypertension complicating , unspecified trimester Plan s/p PPD # 1 1. routine post delivery care 2. breast feeding- support given 3. rh positive 4. rubella immune Medications at Discharge Home Medications magnesium 200 mg tablet 400 mg PO QDAY 03/02/24 multivitamin no.47-iron fum 27 mg-folate no.1 1 mg-dha 300 mg capsule (PNV-DHA) 1 cap PO DAILY 03/02/24 aspirin 81 mg tablet,delayed release (Adult Aspirin Regimen) 81 mg PO QDAY 05/31/24 labetalol 100 mg tablet 100 mg PO BID #60 tabs 07/01/24 Hospital Course Summary of Care Provided Hospital Course: admitted for IOL secondary to chtn, proceeded to deliver vaginally. discharge to home on ppd 1 Weight / BMI Weight Weight: 262 lb 12.8 oz Body Mass Index (BMI) 38.7 ABG / Lab / Microbiology Data 09/28/24 19:30 D/C Instructions Discharge Diet: No restrictions May resume sexual activity in: 4-6 weeks Call your doctor if your incision/area has: Continuous Slow Oozing, Sudden Increased Bleeding, Increased Pain/ Swelling, Increased Redness and Foul Smelling Discharge DC O2, CPAP, BIPAP Needs Home O2 Discharge instructions: No Please Follow Up With: Elsy Sanabria MD When: Call [phone] to make an appointment with your doctor in 6 weeks. If you had elevated blood pressure or 4th degree laceration, you will need to be seen in 2 weeks. Meaningful Use Info Meaningful Use Meaningful Use Diagnoses (Choose all that apply): None applicable Ischemic Stroke Statin Dosing Therapy Reference: STATIN DOSE THERAPY REFERENCE: * Patients > 75 years receive moderate or high dose statin therapy. * Patients 75 years or YOUNGER should receive HIGH intensity statin dose unless contraindicated. You will be required to document reason for non-treatment if statin daily dose does not meet guidelines. HIGH DOSE STATIN THERAPY DAILY Atorvastatin > than or = to 40 mg Rosuvastatin > than or = to 20 mg Amlodipine + Atorvastatin > than or = to 2.5/40 mg Ezetimibe + Simvastatin 10/80 mg Simvastatin 80mg Discharge Plan Admission Admit Date/Time: 09/28/24 19:16 Attending Provider: Elsy Sanabria Primary Care Provider: Samara Lazaro Discharge Orders/Prescriptions Prescriptions: No Action PNV-DHA 27 mg iron-1 mg -300 mg capsule 1 cap PO DAILY magnesium 200 mg tablet 400 mg PO QDAY aspirin [Adult Aspirin Regimen] 81 mg tablet,delayed release (DR/EC) 81 mg PO QDAY labetalol 100 mg tablet 100 mg PO BID Qty: 60 6RF Referrals / Follow Up: Samara Lazaro PANicoleC [Primary Care Provider] - Disposition Disposition (needs filled in before D/C Order can be placed): Home, Self Care
== END 2024-10-01 10:30 | disposition home or self-care (01) | DRG 807 ==
PROVIDERS: Admitting Provider Obstetrics & Gynecology; PCP Family Medicine; Referring Provider Obstetrics & Gynecology; Visit Provider Obstetrics & Gynecology
DX: O10.02 Pre-existing essential hypertension complicating childbirth (principal); Z37.0 Single live birth; B95.1 Streptococcus, group B, as the cause of diseases classified elsewhere; Z3A.37 37 weeks gestation of pregnancy; O99.824 Streptococcus B carrier state complicating childbirth; O69.81X0 Labor and delivery complicated by cord around neck, without compression, not applicable or unspecified; O70.1 Second degree perineal laceration during delivery
CPT/HCPCS: 59025; 59050; 85025; 86780; 86850; 86900; 86901; 99221; A4216; G0378; J2405